=== PATIENT | female | born 1960 | race Caucasian/White ===

== ENCOUNTER 2019-07-25 09:57 | Emergency (ER) | payer OTHER, SELFPAY ==
[2019-07-25 09:59] VITALS: BP 121/81; PULSE 99; RESP 16; TEMP 36.6; BMI 29.2
--- NOTE | 2019-07-25 10:26 | CT_ITS ---
STUDY: CT ABDOMEN AND PELVIS WITH CONTRAST REASON FOR EXAM: Female, 59 years old. LT LEG AND ABD PAIN RADIATION DOSAGE (If Supplied By Facility): CTDIvol = ( 14.06 ) mGy, DLP = ( 721.65 ) mGycm TECHNIQUE: Transaxial images were obtained from the dome of the diaphragm to the symphysis pubis without oral contrast. IV 100mL Isovue-370 was administered. Sagittal and coronal images were reconstructed. Individualized dose optimization techniques were used for this CT. COMPARISON: None. FINDINGS: The visualized lung bases are unremarkable. The visualized portions of the heart are within normal limits. Normal liver. Normal gallbladder and extrahepatic biliary system. Normal spleen. Normal pancreas. Normal bilateral adrenal glands. There is a central dominant renal cyst with simple appearance on the right measuring 3. One centimeters. There is a large inferior pole exophytic cyst of the left kidney measuring 5.7 cm with smaller cortical partially exophytic cysts measuring 1.7 cm and 1.7 cm respectively. There is a large hiatal hernia composed mostly of the fundus of the stomach. Normal small intestine. Normal colon. The appendix is visualized and appears normal. Normal abdominal aorta. Normal inferior vena cava. Normal retroperitoneum. Normal urinary bladder. There is atrophy of the uterus. There is a small umbilical hernia containing fat. Normal osseous structures. CT/Abdomen/Pelvis W IV Cont ONLY IMPRESSION: 1. No evidence of acute intra-abdominal process or focal inflammation. 2. Moderate to large hiatal hernia. 3. Bilateral simple appearing renal cysts with the largest on the left measuring 5.7 cm. Electronically Signed: Ty Meyers DO at 11:57 EDT , Service support ,
--- NOTE | 2019-07-25 10:42 | RAD_ITS ---
STUDY: X-RAY - LEFT KNEE REASON FOR EXAM: Female, 59 years old. Knee pain, off and on, seems to be worse lately -- no injury TECHNIQUE: 4 view(s) of the knee. COMPARISON: None. FINDINGS: Normal visualized distal femur. Normal visualized proximal tibia and fibula. Normal proximal tibiofibular articulation. Normal medial femorotibial compartment. Normal lateral femorotibial compartment. Degenerative spurring and narrowing at the patellofemoral articulation. Small suprapatellar effusion. The soft tissue structures are unremarkable. RAD/Knee 4 or More Views IMPRESSION: Degenerative changes of the knee. Electronically Signed: Luis Bell DO at 12:02 EDT Tel [phone], Service support ,
--- NOTE | 2019-07-25 10:43 | ED.DCSUM_ITS ---
History of Present Illness <Estephania Meneses - Last Filed: 07/25/19 11:01> Informant: Patient Onset: Days - 3 days Context: Gradual Onset Timing: Continuous Quality: Cramping left lower quadrant pain and sharp left knee pain Location: Abdomen and left knee Current Severity: Moderate Maximum Severity: Moderate Worsened by: Movement Relieved by: Nothing Associated Symptoms: Constipation Narrative: 59-year-old female presents with abdominal pain and left knee pain. She has had several days of intermittent left lower quadrant cramping pain. Nothing really makes it better or worse. She has been constipated. No symptoms of bleeding. No fevers. No vomiting. No urinary symptoms. She also has left knee pain which is chronic she knows that she needs left knee replacement but has been working last couple days and thinks that she overdid it and is having worsening pain. No trauma. No numbness or tingling. No weakness. She is ambulatory. Prior similar symptoms: Yes Recent Illness/Hospitalization: No <ChaseloraPhilipp - Last Filed: 07/25/19 12:21> Chief Complaint: Lower Extremity Injury Past Medical History <Estephania Meneses - Last Filed: 07/25/19 11:01> Prior records reviewed: Yes Past Medical History: None Surgical History: no surgical history Lives: With Family Smoking Status: Never smoker Alcohol: Occasional Drugs: None <ChaseloraPhilipp - Last Filed: 07/25/19 12:21> - Allergies and Home Meds Allergies/Adverse Reactions: Allergies Sulfa (Sulfonamide Antibiotics) Allergy (Verified 07/25/19 10:03) Rash EXLAX Allergy (Uncoded 07/25/19 10:03) Rash Review of Systems All systems negative except as indicated General: Denies: Chills, Fever, Sweats Eyes: Denies: Visual changes - bilaterally, Diplopia ENT: Denies: Rhinorrhea, Sore throat Cardiovascular: Denies: Chest pain, Palpitations Respiratory: Denies: Dyspnea, Cough, Dyspnea on exertion Gastrointestinal: Reports: Abdominal pain, Constipation. Denies: Nausea, Vomiting, Diarrhea, Melena, Hematochezia Genitourinary: Denies: Dysuria, Hematuria, Frequency Musculoskeletal: Reports: Swelling, Extremity Pain. Denies: Myalgias, Arthralgias, Neck pain, Back pain Skin: Denies: Rash, Wounds Neurological: Denies: Headache, Weakness, Numbness <Philipp Crowder - Last Filed: 07/25/19 12:21> Physical Exam Vital Signs/Narrative: Vital Signs Temp Pulse Resp BP 07/25/19 09:59 97.8 F 99 16 121/81 H <Estephania Meneses - Last Filed: 07/25/19 11:01> Vital Signs/Narrative: Vital Signs Temp Pulse Resp BP 07/25/19 09:59 97.8 F 99 16 121/81 H Inital Vital Signs reviewed: Yes General: Well nourished, Well developed, No Acute Distress Head: Normocephalic, Atraumatic Eyes: Perrl, EOMI ENT: Moist mucous membranes, No rhinorrhea Neck: Supple, Nontender Cardiovascular: Regular rate, Regular rhythm, No murmurs Respiratory: No distress, CTA bilaterally, Chest nontender Abdomen: Soft, Nondistended, Normal bowel sounds, Tender - Left lower quadrant pain on palpation. No guarding or rebound Back: Nontender, Normal Inspection Extremities: Tenderness - Patient has mild swelling left knee mostly anteriorly. There is bony tenderness diffusely. She has painful active range of motion but no weakness. There is no asymmetrical leg swelling no signs of compartment syndrome distal pulses are normal and distal sensation is normal Skin: Normal color, No rash, No Trauma Neurological: Alert, Oriented x3, Cranial nerves II-XII grossly intact, Normal Strength, Normal Sensation, Normal Gait Psychological: Normal affect, Normal Mood <Philipp Crowder - Last Filed: 07/25/19 12:21> Diagnostic/Tx/Re-eval - Medical Decision Making Patient seen with Philipp agree with history and physical as above, Patient has multiple complaints one is left lower abdominal pain for weeks, 1 is left knee pain for years maybe her whole life He has been been seen by orthopedics she has been told she may require knee replacement surgery, The abdominal pain is not related to the knee pain, the abdomen is soft there is a vague pain to the left lower abdomen no rebound guarding or megaly left lower extremity there is a vague left knee pain she is able to flex and extend there is a slight deformity to her knee that she states is chronic related to issues with her patella and her lead knee is kind of loose and grinding her distal tib- fib foot and ankle exam unremarkable Given all the above 2 separate issues will work-up her abdominal pain x-ray of the knee and see the chart for full details <Estephania Meneses - Last Filed: 07/25/19 11:01> - Medical Decision Making Patient's laboratory work-up is unremarkable. CT abdomen and pelvis unremarkable. X-ray shows chronic findings. Repeat exam abdomen is soft and nontender patient tolerating by mouth will be discharged home <Philipp Crowder - Last Filed: 07/25/19 12:21> ED Disposition <Estephania Meneses - Last Filed: 07/25/19 11:01> <Philipp Crowder - Last Filed: 07/25/19 12:21> - Plan for ED Patient: Disposition: Home or Assisted Living Diagnosis: Abdominal pain, Constipation, Arthritis of knee, degenerative Instructions: ED Constipation, ED Osteoarthritis Prescriptions: Magnesium Citrate [Citrate Of Magnesia] 300 ml PO X1 #1 bottle Prescription Printed Referrals: Luciano Peoples MD [Primary Care Provider] -
[2019-07-25] MEDS: 0.9% Normal Saline 1,000 ML 1000 ML IV (10:53)
[2019-07-25 11:06] LABS: Absolute Lymphocyte Count 1.34 X10^3/uL (0.83-4.51); Absolute Neutrophil Count 3.7 X10^3/uL (2.0-7.7); Basophil# 0.03 X10^3/uL; Basophil% 0.5 % (0-1); Eosinophil# 0.11 X10^3/uL; Hematocrit 37.4 % (37-47); Hemoglobin 12.1 g/dL (12.0-15.0); Lymphocyte # 1.34 X10^3/ul (4.0); Mean Corp Hgb Conc 32.4 g/dL (32-36); Mean Corpuscular Hgb 30.3 pg (27.0-32.0); Mean Corpuscular Volume 93.5 fL (81-99); Mean Platelet Vol. 10.9 fl (6.2-12.0); Monocyte# 0.39 X10^3/uL; NRBC Flagged by Analyzer 0 % (0-5); Neutrophil # 3.68 X10^3/uL (2.7-7.7); Platelet Count 328 K/mm3 (150-450); RBC Distribution Width CV 14.1 % (11.6-14.6); White Blood Count 5.6 K/mm3 (4.4-11.0)
[2019-07-25 11:18] LABS: Anion Gap 5 (5-15); BUN 14 mg/dL (7-18); BUN/Creat Ratio 21.5 RATIO (10-20); Calcium,Total 8.6 mg/dL (8.5-10.1); Chloride 107 mmol/L (98-107); Creatinine, Serum 0.65 mg/dL (0.55-1.02); EST Glomerular Filtration Rate 99 mL/min (>60); Est Glom Filt Rate - Afr Amer 120 mL/min (>60); Estimated Creatinine Clearance 81.47 ml/min; Glucose 92 mg/dL (74-106); Potassium 3.7 mmol/L (3.5-5.1); Sodium Level 141 mmol/L (136-145)
[2019-07-25 12:50] VITALS: BP 136/72; PULSE 64; RESP 17
== END 2019-07-25 12:53 | disposition home or self-care (01) ==
PROVIDERS: Emergency Provider Physician Assistant Medical; PCP Internal Medicine
DX: K59.00 Constipation, unspecified (principal); R10.32 Left lower quadrant pain; M17.12 Unilateral primary osteoarthritis, left knee
CPT/HCPCS: 73564; 74177; 80048; 85025; 96360; 96361; 99283; J7030; Q9967; A4216

== ENCOUNTER 2020-02-25 16:20 | Inpatient (IN) | payer OTHER, SELFPAY ==
[2020-02-25 16:21] VITALS: BP 108/55; PULSE 120; RESP 18; TEMP 37.3; O2SAT 99
--- NOTE | 2020-02-25 16:44 | ED.DCSUM_ITS ---
History of Present Illness Chief Complaint: Allergic Reaction Informant: Patient Narrative: Patient is a 59-year-old female who presents to the emergency department for diffuse rash. Her initial symptoms started yesterday. It started on her abdomen but quickly spread to her entire body. She thinks that it is itchy at times but generally it does not. She feels like it is painful. She was prescribed prednisone by her PCP yesterday and she has taken 4 pills so far. This has not helped at all. She has been shaking chills as well. Of note she did complete a 7 day antibiotic course with Keflex yesterday for a suspected urinary tract infection although her doctor's office called her back and said she did not have a UTI. She was initially placed on this after she said she had some suprapubic discomfort at the beginning of this month. This has since gone away. She did develop fevers today up to 102. She states that this morning she woke up on the kitchen floor as well. She thinks she passed out. She is never done this before. She is not for sure how long she was out for. She had a Covid test performed yesterday and just found out today that it was negative. She denies any headache. She denies any sore throat. No issues with swallowing. Denies any chest pain or shortness of breath. She is not a cough. No abdominal pain or nausea/vomiting. No change in bowel habits. No urinary symptoms now. She does have a history of a rash after taking MiraLAX which she thinks she was having allergic reaction to. She denies any new exposures now. Past Medical History - Allergies and Home Meds Allergies/Adverse Reactions: Allergies Sulfa (Sulfonamide Antibiotics) Allergy (Severe, Verified 02/25/20 23:52) Rash cephalexin [From Keflex] Adverse Reaction (Verified 02/25/20 23:52) Rash EXLAX Allergy (Uncoded 02/25/20 16:24) Rash Prior records reviewed: Yes Past Medical History: - - Anxiety, headaches Surgical History: no surgical history Smoking Status: Never smoker - Family History Maternal Family History: Reports: Diabetes Paternal Family History: Reports: - - His father his healthy and living. His father is 80 years old. Review of Systems All systems negative except as indicated General: Reports: Chills, Fever. Denies: Sweats Eyes: Denies: Visual changes - bilaterally, Diplopia ENT: Denies: Rhinorrhea, Sore throat Cardiovascular: Denies: Chest pain, Palpitations Respiratory: Denies: Dyspnea, Cough, Dyspnea on exertion Gastrointestinal: Denies: Abdominal pain, Nausea, Vomiting, Diarrhea, Melena, Hematochezia Genitourinary: Denies: Dysuria, Hematuria, Frequency Musculoskeletal: Denies: Back pain, Extremity Pain Skin: Reports: Rash. Denies: Wounds Neurological: Denies: Headache, Weakness, Numbness Allergy: Denies: Swelling of the mouth, Swelling of the tongue Physical Exam Vital Signs/Narrative: Vital Signs Temp Pulse Resp BP Pulse Ox 02/25/20 16:21 99.2 F H 120 H 18 108/55 L 99 Inital Vital Signs reviewed: Yes General: Well nourished, Well developed, No Acute Distress Head: Normocephalic, Atraumatic Eyes: Perrl, EOMI ENT: Moist mucous membranes, No rhinorrhea, - - The roof of the mouth does appear mildly erythematous but no lesions appreciated. No swelling. Neck: Supple, Nontender Cardiovascular: Regular rhythm, No murmurs, Tachycardia Respiratory: No distress, CTA bilaterally, Chest nontender Abdomen: Soft, Nontender, Nondistended, Normal bowel sounds Back: Nontender, Normal Inspection Extremities: Nontender, No edema Skin: Normal color, Rash - Raised erythematous rash that does alex. This exte nds all the way from the mid shins bilaterally up to her face. The palms of her hands and soles of her feet are spared. Neurological: Alert, Oriented x3, Cranial nerves II-XII grossly intact, Normal Strength, Normal Sensation Psychological: Normal affect, Normal Mood Diagnostic/Tx/Re-eval Chest X-Ray - ED: 1 View - Single view portable x-ray interpreted by myself. Clear lung becker bilaterally without any consolidation. No pleural effusions. Normal cardiac silhouette. Normal-appearing mediastinum. Agree with radiologist interpretation. - EKG Initial EKG Interpretation: - - Rate of 98 bpm and normal sinus rhythm. Normal intervals. Normal axis. No significant ST elevations or depressions. No T wave abnormalities. - Medical Decision Making Patient presents to the emergency department for diffuse rash. She is also had chills and a fever. Otherwise no other symptoms. Upon arrival to the emergency department she is tachycardic. She has a mildly elevated temperature but not technically a fever. She does have a very concerning rash that is very diffuse except the palms of her hands and soles of her feet are spared. No new exposures. Will check lab work including blood cultures, urinalysis and chest x -ray. Patient's coronavirus test did come back negative. Chest x-ray not show any signs of acute infiltrates. Her urine does still have evidence of infection although she is not having any symptoms at this timeframe. Given the fact she still having fevers and chills we will cover her with antibiotics with ciprofloxacin as she is likely allergic to cephalosporins with the rash. She did not get much of a response from the Solu-Medrol or Benadryl. Her rash could potentially just be a drug rash with the fever but with the potential UTI will bring her into the hospital for further evaluation to make sure that this resolves. She otherwise has been stable throughout ED stay. She understands and is agreeable this plan. ED Disposition - Plan for ED Patient: Disposition: Acute Care Hospital [facility] Diagnosis: Diffuse papular rash, Fever, UTI (urinary tract infection), Drug reaction, Lactic acidosis
[2020-02-25 17:08] VITALS: BP 112/58; PULSE 106; RESP 15; O2SAT 98
--- NOTE | 2020-02-25 17:14 | EKG12_ITS ---
Test Reason : Blood Pressure : / mmHG Vent. Rate : 098 BPM Atrial Rate : 098 BPM P-R Int : 138 ms QRS Dur : 090 ms QT Int : 370 ms P-R-T Axes : 044 002 032 degrees QTc Int : 472 ms Normal sinus rhythm Normal ECG Confirmed by BILL STUBBS, AKIKO ([id number]), city editor LEORA FARIAS ([id number]) on 03/01/2020 6:42:52 AM Referred By: GRADY Confirmed By:AKIKO KHAN MD
--- NOTE | 2020-02-25 17:15 | RAD_ITS ---
STUDY: X-RAY CHEST REASON FOR EXAM: Female, 59 years old. Rash TECHNIQUE: Frontal view of the chest COMPARISON: None. FINDINGS: The lungs are clear. There are no pleural effusions. There is no pneumothorax. The heart is normal in size. The visualized osseous structures are within normal limits. RAD/Chest 1 View (Portable) IMPRESSION: No acute thoracic pathology. Electronically Signed: Dimitri Stevens MD at 17:28 EST Tel , Service support ,
--- NOTE | 2020-02-25 17:18 | NURSING ---
NO OLD EKGS
[2020-02-25 17:32] LABS: Absolute Lymphocyte Count 0.36 X10^3/uL (0.83-4.51); Basophil# 0.01 X10^3/uL; Basophil% 0.1 % (0-1); Eosinophil# 0.09 X10^3/uL; Eosinophils% 0.9 % (0-5); Hematocrit 37.9 % (37-47); Hemoglobin 12.5 g/dL (12.0-15.0); Lymphocyte # 0.36 X10^3/ul (4.0); Lymphocyte % 3.7 % (19-41); Mean Corpuscular Hgb 29.3 pg (27.0-32.0); Mean Platelet Vol. 10.9 fl (6.2-12.0); NRBC Flagged by Analyzer 0 % (0-5); Neutrophil # 9.02 X10^3/uL (2.7-7.7); Neutrophil % 93.7 % (47-70); POSITIVE DIFFERENTIAL YES; Platelet Count 288 K/mm3 (150-450); RBC Distribution Width CV 14.2 % (11.6-14.6); Red Blood Count 4.26 M/mm3 (4.2-5.4); White Blood Count 9.6 K/mm3 (4.4-11.0)
[2020-02-25 17:37] LABS: Differential Indicated SCAN CRITERIA MET
[2020-02-25] MEDS: DiphenhydrAMINE 50 MG/ML Syringe 25 MG IV (17:47)
[2020-02-25] MEDS: MethylPREDNISolone 125 MG/2 ML Vial IV (17:47)
[2020-02-25 17:48] VITALS: TEMP 36.7
[2020-02-25 17:59] LABS: ALB/GLOB Ratio 0.9 RATIO (0.9-2.4); AST(SGOT) 15 U/L (15-37); Alanine Aminotransfer ALT/SGPT 24 U/L (13-56); Albumin, Serum 3.1 g/dL (3.2-5.0); Alkaline Phosphatase 87 U/L (45-117); Anion Gap 9 (5-15); BUN 12 mg/dL (7-18); BUN/Creat Ratio 12.2 RATIO (10-20); Chloride 101 mmol/L (98-107); Creatinine, Serum 0.98 mg/dL (0.55-1.02); EST Glomerular Filtration Rate 61 mL/min (>60); Est Glom Filt Rate - Afr Amer 74 mL/min (>60); Estimated Creatinine Clearance 54.03 ml/min; Globulin 3.5 g/dL (2.2-4.2); Glucose 192 mg/dL (74-106); Potassium 3.7 mmol/L (3.5-5.1); Protein, Total 6.6 g/dL (6.4-8.2); Sodium Level 132 mmol/L (136-145)
[2020-02-25 18:03] LABS: Differential Comment SCANNED
[2020-02-25 18:09] LABS: Red Blood Cells-Urine 0 SEEN /hpf (0-5)
[2020-02-25 18:24] LABS: Lactic Acid 2.7 mmol/L (0.4-1.9)
[2020-02-25 18:36] LABS: Color, Urine Yellow (Yellow); Glucose, Dipstick 100 mg/dl (Normal); Ketone-Dipstick 5 mg/dl (Negative); Leukocyte Esterase-Dipstick 100 /ul (Negative); Nitrite-Dipstick Positive (Negative); Occult Blood-Urine 50 /ul (Negative); Protein-Dipstick 30 mg/dl (Negative); Urine Bilirubin Dipstick Negative (Negative); Urine Clarity Clear (Clear); Urine Urobilinogen Normal (Normal)
[2020-02-25 18:53] VITALS: TEMP 38.1
[2020-02-25 18:58] LABS: Bacteria 1+ /hpf (None Seen); Squamous Epithelial Cells - UA 0-5 SEEN /hpf (5-10); White Blood Cells 0-5 SEEN /hpf (0-5)
[2020-02-25 18:59] LABS: Mucous, Urine RARE /hpf (<or=2+)
[2020-02-25 19:38] VITALS: BP 125/62; PULSE 101; RESP 32; TEMP 37.7; O2SAT 99
[2020-02-25] MEDS: Acetaminophen 325 MG Tablet 650 MG PO (19:44)
[2020-02-25] MEDS: Ciprofloxacin 400 MG/200 ML BAG 200 MG IV (20:26)
[2020-02-25 21:20] LABS: Reflex Lactate? Y
[2020-02-25 21:41] VITALS: BP 122/59; PULSE 105; RESP 24; TEMP 36.9; O2SAT 94
--- NOTE | 2020-02-25 22:12 | HP.PCM_ITS ---
Problem List (1) Adverse drug reaction Status: Acute (2) Fever and chills Status: Acute (3) UTI (urinary tract infection) Status: Acute History of Present Illness Date of Admission: 02/25/20 Chief Complaint: diffuse rash The patient is a 59 year old F with a significant history of depression who presents to the emergency department with diffuse itchy rash that started a day before presentation. Her symptoms started after completing a 7-day course of antibiotics. His symptoms started on the same day that she took her last prescribed dose of Keflex for questionable UTI. Because of this rash, she went to the urgent care a day before her presentation and she was given a steroid taper. Reportedly she was told that the rash may be from Covid. However a Covid test at the urgent care was negative. At the time of present to the emergency department she had taken 4 pills of 10 mg of prednisone. She reports that from February 11 to February 14 2020 she had excruciating lower abdominal pain. On February 16, 2020 she went to the urgent care and was diagnosed with UTI and was started on Keflex. Later she was called and notified that urine culture was negative. However she went ahead to complete the course of keflex antibiotics. On the morning of this presentation she had a home temperature of 102.8 Fahrenheit. Also 2 days ago she had chills. At the emergency department she was given Solu-Medrol; Benadryl and ciprofloxacin. Reportedly her chills improved at the emergency department after treatment. Past Medical History Medical History: Medical History (Last Updated 02/25/20 @ 23:[address] Frank Reeves MD) Denies any previous medical history Allergies Sulfa (Sulfonamide Antibiotics) Allergy (Verified 02/25/20 16:24) Rash EXLAX Allergy (Uncoded 02/25/20 16:24) Rash Home Medications: Ambulatory Orders Medication Instructions Recorded Citalopram [Celexa] 20 mg PO DAILY 07/25/19 Prednisone 10 mg PO X1 02/25/20 Surgical History: no surgical history Smoking Status: Never smoker - *Family History Maternal History Items: Diabetes Paternal History Items: - - His father his healthy and living. His father is 80 years old. Review of Systems Constitutional: Reports: Chills, Fever. Denies: Weight Change HEENT: Denies: Head Aches, Sinus Congestion, Sinus Drainage Cardiovascular: Denies: Chest Pain, Palpitations Respiratory: Denies: Cough, Shortness of breath at rest, Sputum production Gastrointestinal: Denies: Abdominal Pain, Nausea, Vomiting Genitourinary: Denies: Dysuria Musculoskeletal: Denies: Joint Pain, Joint Tenderness Skin: Reports: Pruritis, Rash. Denies: Wounds Neurological: Denies: Numbness, Tingling, Focal weakness Psychiatric: Denies: Anxiety, Depression, Homicidal Ideations, Suicidal Ideations Hematologic/ Lymphatic: Denies: Easy Bruising, Easy Bleeding VTE Information - Inpt Only VTE Present on Admission: No VTE Mechan Device Prophylaxis: None VTE Pharm Prophylaxis ordered?: Yes Patient Problems: Active and Suspected Problems (Last Updated 02/25/20 @ 23:[address] Frank Reeves MD) Adverse drug reaction (Acute) Fever and chills (Acute) UTI (urinary tract infection) (Acute) Diffuse papular rash (Acute) Fever (Acute) UTI (urinary tract infection) (Acute) Drug reaction (Acute) Lactic acidosis (Acute) - Physical Exam Vitals/I&O's: Vital Signs Temp Pulse Resp BP Pulse Ox 98.4 F 105 H 24 H 122/59 H 94 02/25/20 21:41 02/25/20 21:41 02/25/20 21:41 02/25/20 21:41 02/25/20 21:41 Oxygen Delivery Method Room Air Weight: 79.379 kg Body Mass Index (BMI) 30.0 Intake and Output for Last 24 Hours 02/23/20 02/24/20 02/25/20 23:59 23:59 23:59 Intake Total 700 / 700 Balance 700 / 700 General: Alert, Oriented x3, Cooperative HEENT: Atraumatic, PERRLA, EOMI, Normocephalic Neck: Supple, No JVD, Negative Carotid Bruits Lungs: Clear to auscultation, Normal air movement Cardiovascular: Regular rate, No murmurs Abdomen: Bowel Sounds Present, Soft, Non Tender Extremities: No edema, Capillary Refill Less than 3 Seconds Skin: - - Diffuse wheals Musculoskeletal: No Tenderness to Palpation of Joints or Extremities Neurological: Cranial nerves II-XII grossly intact Psych/Mental Status: Normal Affect, Appropriate Laboratory Results 02/25/20 17:00: WBC 9.6, RBC 4.26, Hgb 12.5, Hct 37.9, MCV 89.0, MCH 29.3, MCHC 33.0, RDW Std Deviation 46.0 H, RDW Coeff of Blaise 14.2, Plt Count 288, MPV 10.9, Immature Gran % (Auto) 0.600, Neut % (Auto) 93.7 H, Lymph % (Auto) 3.7 L, [place] % (Auto) 1.0, Eos % (Auto) 0.9, Baso % (Auto) 0.1, Absolute Neuts (auto) 9.0 H, Absolute Lymphs (auto) 0.36 L, Nucleated RBC % 0, Differential Comment SCANNED 02/25/20 17:00: Sodium 132 L, Potassium 3.7, Chloride 101, Carbon Dioxide 22.0, Anion Gap 9, BUN 12, Creatinine 0.98, Estim Creat Clear Calc 54.03, Est GFR (MDRD) Af Amer 74, Est GFR (MDRD) Non-Af 61, BUN/Creatinine Ratio 12.2, Glucose 192 H, Calcium 8.0 L, Total Bilirubin 0.40, AST 15, ALT 24, Alkaline Phosphatase 87, Troponin I < 0.015, Total Protein 6.6, Albumin 3.1 L, Globulin 3.5, Albumin/Globulin Ratio 0.9 02/25/20 17:00: Lactic Acid 2.7 H* 02/25/20 17:15: COVID-19 (PAUL) Not Detected 02/25/20 18:00: Urine Color Yellow, Urine Clarity Clear, Urine pH 6.0, Ur Specific [place] 1.020, Urine Protein 30 H, Urine Glucose (UA) 100 H, Urine Ketones 5 H, Urine Occult Blood 50 H, Urine Nitrite Positive H, Urine Bilirubin Negative, Urine Urobilinogen Normal, Ur Leukocyte Esterase 100 H, Urine RBC 0 SEEN, Urine WBC 0-5 SEEN, Ur Squamous Epith Cells 0-5 SEEN, Urine Bacteria 1+, Urine Mucus RARE 02/25/20 21:40: Lactic Acid Pending Assessment/Plan All Active Problems (Last Updated 02/25/20 @ 23:[address] Frank Reeves MD) Adverse drug reaction (Acute) Fever and chills (Acute) UTI (urinary tract infection) (Acute) Diffuse papular rash (Acute) Fever (Acute) UTI (urinary tract infection) (Acute) Drug reaction (Acute) Lactic acidosis (Acute) The patient is a 59 year old F with a significant history of depression who presents emergency department with diffuse itchy rash after completing a course of antibiotics and with chills and fever. Adverse drug reaction. Suspects that her diffuse rash is from Keflex. Add Keflex to patient's allergy list. Received Solu-Medrol 125 mg at emergency department. Continue patient on prednisone 40 mg daily. As needed Benadryl for itching. Acute UTI Patient without urinary symptoms and completed a course of Keflex. However urinalysis is abnormal. And patient has chills and fever. Chills and fever could be from adverse drug reaction. Received ciprofloxacin at the emergency department and will continue. Blood culture and urine culture was obtained at the emergency department; follow. DVT prophylaxis Subcutaneous Lovenox ordered. OBSV E&M: [id number] Initial observation care L2
[2020-02-25 22:38] LABS: Lactic Acid 2.1 mmol/L (0.4-1.9)
[2020-02-26] VITALS (11 sets, daily range): BP systolic 110–132; BP diastolic 61–74; PULSE 87–124; RESP 16–18; TEMP 37–39.3; O2SAT 95–100; BMI 30.4
--- NOTE | 2020-02-26 02:04 | PCS.PANDOC ---
PANDEMIC DOCUMENTATION INITIATED: Date: 02/25 Time: 5474
[2020-02-26] MEDS: DiphenhydrAMINE 25 MG Capsule PO ×2 (02:17→10:39)
[2020-02-26] MEDS: Acetaminophen 325 MG Tablet 650 MG PO ×3 (02:17→17:43)
[2020-02-26 05:45] LABS: Absolute Lymphocyte Count 0.37 X10^3/uL (0.83-4.51); Absolute Neutrophil Count 12.1 X10^3/uL (2.0-7.7); Basophil# 0.01 X10^3/uL; Basophil% 0.1 % (0-1); Eosinophil# 0.05 X10^3/uL; Eosinophils% 0.4 % (0-5); Hematocrit 33.7 % (37-47); Hemoglobin 11.1 g/dL (12.0-15.0); Lymphocyte # 0.37 X10^3/ul (4.0); Lymphocyte % 2.9 % (19-41); Mean Corp Hgb Conc 32.9 g/dL (32-36); Mean Corpuscular Hgb 29.3 pg (27.0-32.0); Mean Corpuscular Volume 88.9 fL (81-99); Mean Platelet Vol. 11.3 fl (6.2-12.0); Monocyte# 0.11 X10^3/uL; Monocyte% 0.9 % (0-10); NRBC Flagged by Analyzer 0 % (0-5); Neutrophil # 12.09 X10^3/uL (2.7-7.7); Neutrophil % 94.8 % (47-70); POSITIVE DIFFERENTIAL YES; Platelet Count 253 K/mm3 (150-450); RBC Distribution Width CV 14.1 % (11.6-14.6); RBC Distribution Width SD 46.5 fl (35.1-43.9); Red Blood Count 3.79 M/mm3 (4.2-5.4); White Blood Count 12.7 K/mm3 (4.4-11.0)
[2020-02-26 05:51] LABS: Differential Indicated SCAN CRITERIA MET
[2020-02-26 06:09] LABS: Anion Gap 8 (5-15); BUN 13 mg/dL (7-18); BUN/Creat Ratio 13.6 RATIO (10-20); Calcium,Total 7.9 mg/dL (8.5-10.1); Chloride 103 mmol/L (98-107); Creatinine, Serum 0.96 mg/dL (0.55-1.02); EST Glomerular Filtration Rate 63 mL/min (>60); Est Glom Filt Rate - Afr Amer 77 mL/min (>60); Estimated Creatinine Clearance 55.16 ml/min; Glucose 227 mg/dL (74-106); Potassium 3.4 mmol/L (3.5-5.1); Sodium Level 134 mmol/L (136-145)
[2020-02-26 06:19] LABS: Differential Comment SCANNED; Pathologist Review May foll
[2020-02-26] MEDS: Ciprofloxacin 400 MG/200 ML BAG 200 MG IV ×2 (07:26→21:47)
[2020-02-26] MEDS: 0.9% Saline Lock 10 ML Syringe IV (07:26)
[2020-02-26] MEDS: predniSONE 20 MG Tablet 40 MG PO (07:31)
--- NOTE | 2020-02-26 09:03 | PCM.PN.HOSP ---
Patient Problems: Active and Suspected Problems (Last Updated 02/25/20 @ 23:[address] Frank Reeves MD) Adverse drug reaction (Acute) Fever and chills (Acute) UTI (urinary tract infection) (Acute) Diffuse papular rash (Acute) Fever (Acute) UTI (urinary tract infection) (Acute) Drug reaction (Acute) Lactic acidosis (Acute) Reason for Visit: Adverse drug reaction Subjective: The patient is a 59 year old F who presents emergency department with diffuse itchy rash (after completing a course of antibiotics) with associated chills and fever. Objective: GENERAL: cooperative HEENT: Atraumatic; EYES; Anicteric, Normal Conjunctiva NECK; supple, normal thyroid, RESPIRATORY: Diminished to auscultation CARDIOVASCULAR: Regular S1 S2, GI: soft, normoactive bowel sounds, : No Renal angle tenderness; EXTREMITIES: No edema, no clubbing, MUSCULOSKELETAL: no muscle waisting NEURO: Awake; no lateralizing signs. SKIN: Sensitive maculopapular rash from face neck trunk back and extremities PSYCH; appears anxious Vitals/I&O's: Vital Signs Temp Pulse Resp BP Pulse Ox 99.8 F H 100 18 121/63 H 99 02/26/20 07:23 02/26/20 07:23 02/26/20 07:23 02/26/20 07:23 02/26/20 07:23 Oxygen Delivery Method Room Air Weight: 80.422 kg Body Mass Index (BMI) 30.4 Intake and Output for Last 24 Hours 02/24/20 02/25/20 02/26/20 23:59 23:59 23:59 Intake Total 700 / 700 200 / 200 Balance 700 / 700 200 / 200 Laboratory Results 02/25/20 17:00: WBC 9.6, RBC 4.26, Hgb 12.5, Hct 37.9, MCV 89.0, MCH 29.3, MCHC 33.0, RDW Std Deviation 46.0 H, RDW Coeff of Blaise 14.2, Plt Count 288, MPV 10.9, Immature Gran % (Auto) 0.600, Neut % (Auto) 93.7 H, Lymph % (Auto) 3.7 L, [place] % (Auto) 1.0, Eos % (Auto) 0.9, Baso % (Auto) 0.1, Absolute Neuts (auto) 9.0 H, Absolute Lymphs (auto) 0.36 L, Nucleated RBC % 0, Differential Comment SCANNED 02/25/20 17:00: Sodium 132 L, Potassium 3.7, Chloride 101, Carbon Dioxide 22.0, Anion Gap 9, BUN 12, Creatinine 0.98, Estim Creat Clear Calc 54.03, Est GFR (MDRD) Af Amer 74, Est GFR (MDRD) Non-Af 61, BUN/Creatinine Ratio 12.2, Glucose 192 H, Calcium 8.0 L, Total Bilirubin 0.40, AST 15, ALT 24, Alkaline Phosphatase 87, Troponin I < 0.015, Total Protein 6.6, Albumin 3.1 L, Globulin 3.5, Albumin/Globulin Ratio 0.9 02/25/20 17:00: Lactic Acid 2.7 H* 02/25/20 17:15: COVID-19 (PAUL) Not Detected 02/25/20 18:00: Urine Color Yellow, Urine Clarity Clear, Urine pH 6.0, Ur Specific [place] 1.020, Urine Protein 30 H, Urine Glucose (UA) 100 H, Urine Ketones 5 H, Urine Occult Blood 50 H, Urine Nitrite Positive H, Urine Bilirubin Negative, Urine Urobilinogen Normal, Ur Leukocyte Esterase 100 H, Urine RBC 0 SEEN, Urine WBC 0-5 SEEN, Ur Squamous Epith Cells 0-5 SEEN, Urine Bacteria 1+, Urine Mucus RARE 02/25/20 21:40: Lactic Acid 2.1 H* 02/26/20 05:05: WBC 12.7 H, RBC 3.79 L, Hgb 11.1 L, Hct 33.7 L, MCV 88.9, MCH 29.3, MCHC 32.9, RDW Std Deviation 46.5 H, RDW Coeff of Blaise 14.1, Plt Count 253, MPV 11.3, Immature Gran % (Auto) 0.900, Neut % (Auto) 94.8 H, Lymph % (Auto) 2.9 L, [place] % (Auto) 0.9, Eos % (Auto) 0.4, Baso % (Auto) 0.1, Absolute Neuts (auto) 12.1 H, Absolute Lymphs (auto) 0.37 L, Nucleated RBC % 0, Differential Comment SCANNED, Diff Path Review June02/26/20 05:05: Sodium 134 L, Potassium 3.4 L, Chloride 103, Carbon Dioxide 23.0, Anion Gap 8, BUN 13, Creatinine 0.96, Estim Creat Clear Calc 55.16, Est GFR (MDRD) Af Amer 77, Est GFR (MDRD) Non-Af 63, BUN/Creatinine Ratio 13.6, Glucose 227 H, Calcium 7.9 L Current Medications Acetaminophen (Acetaminophen 325 Mg Tablet) 650 mg PO Q6H PRN PRN PRN Reason: Pain Score 1-10/Temp > 100.7 F Last Admin: 02/26/20 02:17 Dose: 650 mg Documented by: Citalopram Hydrobromide (Citalopram 20 Mg Tablet) 20 mg PO DAILY [facility] Diphenhydramine HCl (Diphenhydramine 25 Mg Capsule) 25 mg PO Q8H PRN PRN PRN Reason: ITCHING Last Admin: 02/26/20 02:17 Dose: 25 mg Documented by: Enoxaparin Sodium (Enoxaparin 40 Mg/0.4 Ml Syringe) 40 mg SC DAILY [facility] Ciprofloxacin (Cipro) 400 mg in 200 mls @ 200 mls/hr IV Q12 [facility] Last Infusion: 02/26/20 08:26 Dose: Infused Documented by: Sodium Chloride () 250 mls @ 15 mls/hr IV .[id number] PRN PRN Reason: Saline Flush Sodium Chloride () 250 mls @ 15 mls/hr IV .[id number] PRN PRN Reason: Additional IVPB Infusion Melatonin (Melatonin 3 Mg Tablet) 3 mg PO QHS PRN PRN PRN Reason: INSOMNIA Ondansetron HCl (Ondansetron 4 Mg/2 Ml Vial) 4 mg IV Q8H PRN PRN PRN Reason: NAUSEA/VOMITING Prednisone (Prednisone 20 Mg Tablet) 40 mg PO DAILY@0800 [facility] Last Admin: 02/26/20 07:31 Dose: 40 mg Documented by: Senna/Docusate Sodium (Senna/Docusate Sodium 1 Tablet) 2 tablet PO BID PRN PRN PRN Reason: Constipation Sodium Chloride (0.9% Saline Lock 10 Ml Syringe) 10 - 40 ml IV UD PRN PRN Reason: SALINE FLUSH Last Admin: 02/26/20 07:26 Dose: 10 ml Documented by: STROKE Vital Signs/Narrative: Vital Signs Temp Pulse Resp BP Pulse Ox 02/26/20 07:23 99.8 F H 100 18 121/63 H 99 Medical Necessity - Tobacco Use Smoking Status: Never smoker Assessment/Plan All Active Problems (Last Updated 02/25/20 @ 23:[address] Frank Reeves MD) Adverse drug reaction (Acute) Fever and chills (Acute) UTI (urinary tract infection) (Acute) Diffuse papular rash (Acute) Fever (Acute) UTI (urinary tract infection) (Acute) Drug reaction (Acute) Lactic acidosis (Acute) The patient is a 59 year old F who presents emergency department with diffuse itchy rash (after completing a course of antibiotics) with associated chills and fever. 1. Adverse drug reaction ?This was thought to be secondary to cephalexin. Patient did receive Solu-Medrol in the ER admitted to regular nursing floor placed on prednisone, Benadryl and famotidine 2. Acute cystitis ?Patient had apparently complicated course of Keflex however urinalysis obtained in the ED was consistent with presence of infection subsequently started on Cipro 3. Resting with BMI of 30.4 ?Weight loss advised 4. DVT prophylaxis ?Lovenox Inpatient E&M: 83364 Subs Hosp L2
[2020-02-26] MEDS: Citalopram 20 MG Tablet PO (10:39)
[2020-02-26] MEDS: Enoxaparin 40 MG/0.4 ML Syringe SC (10:39)
--- NOTE | 2020-02-26 14:07 | CM.UR ---
RN CM INSTANTIZER OPERATOR CM to room to meet with patient and her for initial transition planning/care coordination assessment. RN LORETTA introduced self and role at [facility].? Pt voices understanding and consents to assessment at this time.? Pt resting in bed in no distress at this time.? Pt is A/O at this time and answers all questions appropriately.?? Care providers, pharmacy, and demographics verified/updated at this time. Presentation: painful rash Admission dx: UTI and dermatitis PCP: [facility] Specialists: none Preferred Pharmacy: [facility] Insurance: [employer] Prescription Benefit:? Yes [employer], declines problems affording copays Living Arrangements: Single story home. 2 steps with railing to enter home. ADLs: independent Living Will/HPOA:? None. Declines additional information. States she is knowledgeable about them, previously worked for [employer]. LNOK: [place] Transportation: drives self and , if she is not able/allowed. DME: grab bar in shower HHC: none SNF: none Goal: home PLAN: ?Home, no needs anticipated. Patient denies any needs at this time. Instructed case management will remain available should any needs arise. Verb understanding. Nellie Birmingham RN, CCM.
[2020-02-26] MEDS: Famotidine 20 MG Tablet 40 MG PO (14:26)
[2020-02-26] MEDS: Famotidine 20 MG Tablet PO (21:47)
[2020-02-27] MEDS: Acetaminophen 325 MG Tablet 650 MG PO (00:32)
[2020-02-27 03:00] VITALS: TEMP 38.3
[2020-02-27 04:30] VITALS: BP 106/53; PULSE 88; RESP 16; TEMP 39.3; O2SAT 96
--- NOTE | 2020-02-27 05:49 | PCM.PN.BLA ---
Progress Note With persistence of fever blood Tylenol alone is unable to manage ibuprofen as needed also ordered. Will repeat blood culture. Blood culture is pending. Initially her symptoms was attributed to adverse drug reaction and UTI. But with assistance fever will broaden antibiotics by adding doxycycline for probable infectious rash. Will check a CMP to rule out dress syndrome. Of note eosinophils are not elevated. STROKE Vital Signs/Narrative: Vital Signs Temp Pulse Resp BP Pulse Ox 02/27/20 04:30 102.7 F H 88 16 106/53 L 96 02/27/20 03:00 101.0 F H
[2020-02-27] MEDS: Ibuprofen 400 MG Tablet PO (05:57)
[2020-02-27 06:11] LABS: Hematocrit 39.3 % (37-47); Hemoglobin 12.7 g/dL (12.0-15.0); Mean Corp Hgb Conc 32.3 g/dL (32-36); Mean Corpuscular Hgb 28.5 pg (27.0-32.0); Mean Corpuscular Volume 88.3 fL (81-99); Mean Platelet Vol. 11.5 fl (6.2-12.0); Platelet Count 256 K/mm3 (150-450); RBC Distribution Width CV 14.4 % (11.6-14.6); RBC Distribution Width SD 46.8 fl (35.1-43.9); Red Blood Count 4.45 M/mm3 (4.2-5.4); White Blood Count 11.4 K/mm3 (4.4-11.0)
[2020-02-27 06:26] LABS: ALB/GLOB Ratio 0.8 RATIO (0.9-2.4); AST(SGOT) 14 U/L (15-37); Alanine Aminotransfer ALT/SGPT 22 U/L (13-56); Albumin, Serum 2.6 g/dL (3.2-5.0); Alkaline Phosphatase 68 U/L (45-117); Anion Gap 6 (5-15); BUN 16 mg/dL (7-18); BUN/Creat Ratio 14.8 RATIO (10-20); Calcium,Total 7.9 mg/dL (8.5-10.1); Chloride 100 mmol/L (98-107); Creatinine, Serum 1.08 mg/dL (0.55-1.02); EST Glomerular Filtration Rate 55 mL/min (>60); Est Glom Filt Rate - Afr Amer 67 mL/min (>60); Estimated Creatinine Clearance 49.03 ml/min; Globulin 3.2 g/dL (2.2-4.2); Glucose 101 mg/dL (74-106); Potassium 3.7 mmol/L (3.5-5.1); Protein, Total 5.8 g/dL (6.4-8.2); Sodium Level 132 mmol/L (136-145)
--- NOTE | 2020-02-27 07:52 | PCM.PN.HOSP ---
Patient Problems: Active and Suspected Problems (Last Updated 02/25/20 @ 23:[address] Frank Reeves MD) Adverse drug reaction (Acute) Fever and chills (Acute) UTI (urinary tract infection) (Acute) Diffuse papular rash (Acute) Fever (Acute) UTI (urinary tract infection) (Acute) Drug reaction (Acute) Lactic acidosis (Acute) Reason for Visit: Extensive maculopapular rash Subjective: The patient is a 59 year old F who presents emergency department with diffuse itchy rash (after completing a course of antibiotics) with associated chills and fever. 02/27/2020; patient did receive Motrin for persistent fever. Her rash is more confluent compared to the previous day. Her urine and blood cultures have so far remained negative to date. Patient was on Cipro discontinued during the night started on doxycycline Objective: GENERAL: cooperative HEENT: Atraumatic; EYES; Anicteric, Normal Conjunctiva NECK; supple, normal thyroid, RESPIRATORY: Diminished to auscultation CARDIOVASCULAR: Regular S1 S2, GI: soft, normoactive bowel sounds, : No Renal angle tenderness; EXTREMITIES: No edema, no clubbing, MUSCULOSKELETAL: no muscle waisting NEURO: Awake; no lateralizing signs. SKIN: Sensitive maculopapular rash from face neck trunk back and extremities PSYCH; appears anxious Vitals/I&O's: Vital Signs Temp Pulse Resp BP Pulse Ox 102.7 F H 88 16 106/53 L 96 02/27/20 04:30 02/27/20 04:30 02/27/20 04:30 02/27/20 04:30 02/27/20 04:30 Oxygen Delivery Method Room Air Weight: 80.422 kg Body Mass Index (BMI) 30.4 Intake and Output for Last 24 Hours 02/25/20 02/26/20 02/27/20 23:59 23:59 23:59 Intake Total 700 / 700 760 / 1360 1000 / 1000 Balance 700 / 700 760 / 1360 1000 / 1000 Laboratory Results 02/27/20 05:15: WBC 11.4 H, RBC 4.45, Hgb 12.7, Hct 39.3, MCV 88.3, MCH 28.5, MCHC 32.3, RDW Std Deviation 46.8 H, RDW Coeff of Blaise 14.4, Plt Count 256, MPV 11.5 02/27/20 05:15: Sodium 132 L, Potassium 3.7, Chloride 100, Carbon Dioxide 26.0, Anion Gap 6, BUN 16, Creatinine 1.08 H, Estim Creat Clear Calc 49.03, Est GFR (MDRD) Af Amer 67, Est GFR (MDRD) Non-Af 55 L, BUN/Creatinine Ratio 14.8, Glucose 101, Calcium 7.9 L, Total Bilirubin 0.40, AST 14 L, ALT 22, Alkaline Phosphatase 68, Total Protein 5.8 L, Albumin 2.6 L, Globulin 3.2, Albumin/Globulin Ratio 0.8 L Current Medications Acetaminophen (Acetaminophen 325 Mg Tablet) 650 mg PO Q6H PRN PRN PRN Reason: Pain Score 1-10/Temp > 100.7 F Last Admin: 02/27/20 00:32 Dose: 650 mg Documented by: Citalopram Hydrobromide (Citalopram 20 Mg Tablet) 20 mg PO DAILY [facility] Last Admin: 02/26/20 10:39 Dose: 20 mg Documented by: Diphenhydramine HCl (Diphenhydramine 25 Mg Capsule) 25 mg PO Q8H PRN PRN PRN Reason: ITCHING Last Admin: 02/26/20 10:39 Dose: 25 mg Documented by: Enoxaparin Sodium (Enoxaparin 40 Mg/0.4 Ml Syringe) 40 mg SC DAILY [facility] Last Admin: 02/26/20 10:39 Dose: 40 mg Documented by: Famotidine (Famotidine 20 Mg Tablet) 20 mg PO BID [facility] Last Admin: 02/26/20 21:47 Dose: 20 mg Documented by: Ciprofloxacin (Cipro) 400 mg in 200 mls @ 200 mls/hr IV Q12 [facility] Last Infusion: 02/26/20 22:54 Dose: Infused Documented by: Sodium Chloride () 250 mls @ 15 mls/hr IV .[id number] PRN PRN Reason: Saline Flush Sodium Chloride () 250 mls @ 15 mls/hr IV .[id number] PRN PRN Reason: Additional IVPB Infusion Doxycycline Hyclate 100 mg/ (Dextrose) 260 mls @ 250 mls/hr IV Q12 [facility] Last Admin: 02/27/20 06:38 Dose: 250 mls/hr Documented by: Ibuprofen (Ibuprofen 400 Mg Tablet) 400 mg PO Q6H PRN PRN PRN Reason: Fever with temperature more than 100.4 Fahrenheit Last Admin: 02/27/20 05:57 Dose: 400 mg Documented by: Melatonin (Melatonin 3 Mg Tablet) 3 mg PO QHS PRN PRN PRN Reason: INSOMNIA Ondansetron HCl (Ondansetron 4 Mg/2 Ml Vial) 4 mg IV Q8H PRN PRN PRN Reason: NAUSEA/VOMITING Potassium Chloride (Potassium Chloride 20 Meq Tablet) [facility] Last Admin: 02/26/20 17:43 Dose: 20 meq Documented by: Prednisone (Prednisone 20 Mg Tablet) 40 mg PO DAILY@0800 [facility] Last Admin: 02/26/20 07:31 Dose: 40 mg Documented by: Senna/Docusate Sodium (Senna/Docusate Sodium 1 Tablet) 2 tablet PO BID PRN PRN PRN Reason: Constipation Sodium Chloride (0.9% Saline Lock 10 Ml Syringe) 10 - 40 ml IV UD PRN PRN Reason: SALINE FLUSH Last Admin: 02/26/20 07:26 Dose: 10 ml Documented by: STROKE Vital Signs/Narrative: Vital Signs Temp Pulse Resp BP Pulse Ox 02/27/20 04:30 102.7 F H 88 16 106/53 L 96 Medical Necessity - Tobacco Use Smoking Status: Never smoker Assessment/Plan All Active Problems (Last Updated 02/25/20 @ 23:[address] Frank Reeves MD) Adverse drug reaction (Acute) Fever and chills (Acute) UTI (urinary tract infection) (Acute) Diffuse papular rash (Acute) Fever (Acute) UTI (urinary tract infection) (Acute) Drug reaction (Acute) Lactic acidosis (Acute) The patient is a 59 year old F who presents emergency department with diffuse itchy rash (after completing a course of antibiotics) with associated chills and fever. 1. Extensive maculopapular rash ?? adverse drug reaction ?This was thought to be secondary to cephalexin. Patient did receive Solu-Medrol in the ER admitted to regular nursing floor placed on prednisone, Benadryl and famotidine -02/27/2020; patient did receive Motrin for persistent fever. Her rash is more confluent compared to the previous day. 2. Acute cystitis ?Patient had apparently complicated course of Keflex however urinalysis obtained in the ED was consistent with presence of infection subsequently started on Cipro -02/27/2020 Patient blood cultures obtained on admission are so far positive for gram-positive cocci in clusters. Patient started on doxycycline (ciprofloxacin discontinued) during the evening. Will await final identification and sensitivities prior to adjusting antibiotic therapy. Consult was also placed to ID due to the positive blood cultures 3. Resting with BMI of 30.4 ?Weight loss advised 4. DVT prophylaxis ?Lovenox Inpatient E&M: 70860 Subs Hosp L2
[2020-02-27] MEDS: predniSONE 20 MG Tablet 40 MG PO ×2 (09:05→19:51)
[2020-02-27] MEDS: Enoxaparin 40 MG/0.4 ML Syringe SC (09:06)
[2020-02-27] MEDS: Citalopram 20 MG Tablet PO (09:06)
[2020-02-27] MEDS: Famotidine 20 MG Tablet PO ×2 (09:06→21:57)
[2020-02-27] MEDS: Ciprofloxacin 400 MG/200 ML BAG 200 MG IV (09:11)
[2020-02-27 09:14] VITALS: BP 90/54; PULSE 93; RESP 16; TEMP 36.3; O2SAT 98
[2020-02-27 10:38] VITALS: O2SAT 97
[2020-02-27 14:30] VITALS: BP 101/54; PULSE 87; RESP 16; TEMP 37.1; O2SAT 96
[2020-02-27 14:40] LABS: Erythrocyte Sedimentation Rate 11 mm/hr (0-30)
--- NOTE | 2020-02-27 20:11 | DS.PCM_ITS ---
Discharge Date and Diagnosis - Problem List Patient Problems: Active and Suspected Problems (Last Updated 02/25/20 @ 23:[address] Frank Reeves MD) Adverse drug reaction (Acute) Fever and chills (Acute) UTI (urinary tract infection) (Acute) Diffuse papular rash (Acute) Fever (Acute) UTI (urinary tract infection) (Acute) Drug reaction (Acute) Lactic acidosis (Acute) Date of Admission: 02/25/20 Date of Discharge: 02/27/20 - Primary Discharge Diagnosis Acute Problems: Active Problems (Last Updated 02/25/20 @ 23:[address] Frank Reeves MD) 1. Extensive diffuse erythematous/purpuric rash, suspected drug reaction, mendoza picious for Kaiser-Miguelito syndrome 2. UTI ruled out 3. Depression Hospital Course and Treatment Imaging Results: Diagnostic Data Chest X-Ray 02/25/20 17:15 IMPRESSION: No acute thoracic pathology. Electronically Signed: Dimitri Stevens MD at 17:28 EST Tel , Service support , Operations: None Procedures: None Summary of Care Provided: The patient is a 59 year old F admitted 02/25/2020 due to diffuse rash. 1. Extensive diffuse erythematous/purpuric rash, suspected drug reaction, suspicious for Kaiser-Miguelito syndrome-patient's rash began days after completing course of Keflex. Her rash was preceded by flulike symptoms including fever, chills. Her rash has extensively worsened and is painful. Due to concern for Dimitri Miguelito syndrome, patient was transferred to [facility] burn unit for further treatment and evaluation. She was treated with 1 mg/kg prednisone, 80 mg/day along with as needed Benadryl, famotidine. 2. UTI ruled out-urine culture grew 1-10,000 mixed gram-positive and gram- negative organisms. Patient did have 1 out of 4 positive blood culture which is still preliminary however this is suspected secondary to contamination as there is no identifiable organisms. Patient was kept on doxycycline pending final culture read out. 3. Depression- on celexa. Patient seen and examined prior to discharge. Physical assessment as noted below. Patient is stable for discharge with follow up recommendations as noted above. This patient was seen by MUKUND Youssef under the supervision of Dr. Alarcon. Patient Problems: Active and Suspected Problems (Last Updated 02/25/20 @ 23:[address] Frank Reeves MD) Adverse drug reaction (Acute) Fever and chills (Acute) UTI (urinary tract infection) (Acute) Diffuse papular rash (Acute) Fever (Acute) UTI (urinary tract infection) (Acute) Drug reaction (Acute) Lactic acidosis (Acute) - Physical Exam Vitals/I&O's: Vital Signs Temp Pulse Resp BP Pulse Ox 98.7 F 87 16 101/54 L 96 02/27/20 14:30 02/27/20 14:30 02/27/20 14:30 02/27/20 14:30 02/27/20 14:30 Oxygen Delivery Method Room Air Weight: 177 lb 4.8 oz Body Mass Index (BMI) 30.4 Intake and Output for Last 24 Hours 02/25/20 02/26/20 02/27/20 23:59 23:59 23:59 Intake Total 700 / 700 760 / 1360 1810 / 1810 Balance 700 / 700 760 / 1360 1810 / 1810 Microbiology Past 72 Hours 02/25/20 18:15 Blood Culture (Wb) - Anticubital Left Bacteria Detection (PCR) - Final 02/25/20 18:15 Blood Culture (Wb) - Anticubital Left Blood Culture - Preliminary 02/25/20 18:00 Urine, Clean Catch Urine Culture - Final Mixed Gram Pos & Gram Neg Org Laboratory Results 02/25/20 17:15: COVID-19 (PAUL) Not Detected 02/27/20 05:15: WBC 11.4 H, RBC 4.45, Hgb 12.7, Hct 39.3, MCV 88.3, MCH 28.5, MCHC 32.3, RDW Std Deviation 46.8 H, RDW Coeff of Blaise 14.4, Plt Count 256, MPV 11.5 02/27/20 05:15: Sodium 132 L, Potassium 3.7, Chloride 100, Carbon Dioxide 26.0, Anion Gap 6, BUN 16, Creatinine 1.08 H, Estim Creat Clear Calc 49.03, Est GFR (MDRD) Af Amer 67, Est GFR (MDRD) Non-Af 55 L, BUN/Creatinine Ratio 14.8, Glucose 101, Calcium 7.9 L, Total Bilirubin 0.40, AST 14 L, ALT 22, Alkaline Phosphatase 68, Total Protein 5.8 L, Albumin 2.6 L, Globulin 3.2, Albumin/Globulin Ratio 0.8 L 02/27/20 05:15: ESR 11 02/27/20 05:15: C-React Prot Ext Range 185.00 H Current Medications Acetaminophen (Acetaminophen 325 Mg Tablet) 650 mg PO Q6H PRN PRN PRN Reason: Pain Score 1-10/Temp > 100.7 F Last Admin: 02/27/20 00:32 Dose: 650 mg Documented by: Citalopram Hydrobromide (Citalopram 20 Mg Tablet) 20 mg PO DAILY [facility] Last Admin: 02/27/20 09:06 Dose: 20 mg Documented by: Diphenhydramine HCl (Diphenhydramine 25 Mg Capsule) 25 mg PO Q8H PRN PRN PRN Reason: ITCHING Last Admin: 02/26/20 10:39 Dose: 25 mg Documented by: Enoxaparin Sodium (Enoxaparin 40 Mg/0.4 Ml Syringe) 40 mg SC DAILY [facility] Last Admin: 02/27/20 09:06 Dose: 40 mg Documented by: Famotidine (Famotidine 20 Mg Tablet) 20 mg PO BID [facility] Last Admin: 02/27/20 09:06 Dose: 20 mg Documented by: Ciprofloxacin (Cipro) 400 mg in 200 mls @ 200 mls/hr IV Q12 [facility] Last Infusion: 02/27/20 10:14 Dose: Infused Documented by: Sodium Chloride () 250 mls @ 15 mls/hr IV .[id number] PRN PRN Reason: Saline Flush Sodium Chloride () 250 mls @ 15 mls/hr IV .[id number] PRN PRN Reason: Additional IVPB Infusion Doxycycline Hyclate 100 mg/ (Dextrose) 260 mls @ 250 mls/hr IV Q12 [facility] Last Infusion: 02/27/20 08:15 Dose: Infused Documented by: Ibuprofen (Ibuprofen 400 Mg Tablet) 400 mg PO Q6H PRN PRN PRN Reason: Fever with temperature more than 100.4 Fahrenheit Last Admin: 02/27/20 05:57 Dose: 400 mg Documented by: Melatonin (Melatonin 3 Mg Tablet) 3 mg PO QHS PRN PRN PRN Reason: INSOMNIA Ondansetron HCl (Ondansetron 4 Mg/2 Ml Vial) 4 mg IV Q8H PRN PRN PRN Reason: NAUSEA/VOMITING Prednisone (Prednisone 20 Mg Tablet) 80 mg PO DAILY@0800 [facility] Senna/Docusate Sodium (Senna/Docusate Sodium 1 Tablet) 2 tablet PO BID PRN PRN PRN Reason: Constipation Sodium Chloride (0.9% Saline Lock 10 Ml Syringe) 10 - 40 ml IV UD PRN PRN Reason: SALINE FLUSH Last Admin: 02/26/20 07:26 Dose: 10 ml Documented by: Home Medications: Medications to take at Discharge Citalopram [Celexa] 20 mg PO DAILY 07/25/19 Prednisone 10 mg PO X1 02/25/20 Primary Care Physician: Luciano Peoples MD [Primary Care Provider] - Disposition: Acute care Hospital Minutes spent on discharge:: 35 Patient Condition:: Fair Medical Necessity - Tobacco Use Smoking Status: Never smoker Meaningful Use Info Meaningful Use Diagnoses (Choose all that apply): None applicable
[2020-02-27 20:30] VITALS: BP 118/69; PULSE 87; RESP 16; TEMP 37.1; O2SAT 98
--- NOTE | 2020-02-28 | LES_PTH ---
PATIENT: DAVEY CARRASQUILLO LOC: MS3 U#:[id number] AGE/SX: 59/F [place] [facility] [place] [place]02/27/[address]: Dr. Ray Anthony MD : 1960 BED: 1 DIS: 03/01/2020 SPEC #: [id number] RECD: 02/29/20 11:13 STATUS: LIOR JOYCE #: [id number] SONU: 02/28/20 00:[address]: Ray Anthony DEPT: SURGICAL PATHOLOGY RECD BY: Calixto Gutierrez ENTERED: 02/29/20 11:23 SP TYPE: Lesion OTHR DR: MD Dr. Sammy Pack MD Dr. 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 Mild basal spongiosis and rare necrotic keratinocytes are noted. Negative for malignancy. See comment. CHUCKIE:lida 03/01/2020 COMMENT Epidermal necrosis is not seen. Clinical correlation and appropriate follow up are necessary. Special stain for fungi is negative for organisms; matched control is appropriate. Case has been reviewed in consultation with Dr. Avila who concurs with the above diagnosis. IDC:AM MICROSCOPIC DESCRIPTION Slides are reviewed. GROSS DESCRIPTION Received in fixative is one container labeled with the patient's name and designated left calf punch biopsy. The specimen consists of a punch biopsy of berkowitz-white skin measuring 0.5 cm in diameter and 0.1 cm in length. The specimen is totally submitted in one cassette. It will be bisected at the time of embedding. / SJ:lida 02/29/20 TC:3 CPT: 64263, 61087
[2020-02-28 02:30] VITALS: BP 110/59; PULSE 85; RESP 16; TEMP 37.1; O2SAT 98
--- NOTE | 2020-02-28 02:51 | NURSING ---
Late entry: CANDACE Patino called to update that pt will be re-evaluated in morning. Pt has been accepted and will be transferred to [facility] burn unit tomorrow. Pt made aware of plan.
[2020-02-28 06:56] LABS: Hematocrit 32.4 % (37-47); Hemoglobin 10.9 g/dL (12.0-15.0); Mean Corp Hgb Conc 33.6 g/dL (32-36); Mean Corpuscular Hgb 29.1 pg (27.0-32.0); Mean Corpuscular Volume 86.4 fL (81-99); Mean Platelet Vol. 11.5 fl (6.2-12.0); Platelet Count 221 K/mm3 (150-450); RBC Distribution Width CV 14.1 % (11.6-14.6); RBC Distribution Width SD 44.8 fl (35.1-43.9); Red Blood Count 3.75 M/mm3 (4.2-5.4); White Blood Count 7.2 K/mm3 (4.4-11.0)
[2020-02-28 07:18] LABS: Anion Gap 6 (5-15); BUN 12 mg/dL (7-18); BUN/Creat Ratio 19.9 RATIO (10-20); Calcium,Total 8.2 mg/dL (8.5-10.1); Chloride 103 mmol/L (98-107); EST Glomerular Filtration Rate 108 mL/min (>60); Est Glom Filt Rate - Afr Amer 131 mL/min (>60); Estimated Creatinine Clearance 88.25 ml/min; Glucose 122 mg/dL (74-106); Sodium Level 135 mmol/L (136-145)
[2020-02-28] MEDS: predniSONE 20 MG Tablet 80 MG PO (08:24)
[2020-02-28 08:27] VITALS: BP 122/61; PULSE 90; RESP 16; TEMP 36.5; O2SAT 100
[2020-02-28] MEDS: DiphenhydrAMINE 25 MG Capsule PO ×2 (08:37→19:48)
[2020-02-28] MEDS: Enoxaparin 40 MG/0.4 ML Syringe SC (10:08)
[2020-02-28] MEDS: Citalopram 20 MG Tablet PO (10:09)
[2020-02-28] MEDS: Famotidine 20 MG Tablet PO ×2 (10:09→21:54)
--- NOTE | 2020-02-28 12:32 | PCM.PN.HOSP ---
Patient Problems: Active and Suspected Problems (Last Updated 02/25/20 @ 23:[address] Frank Reeves MD) Adverse drug reaction (Acute) Fever and chills (Acute) UTI (urinary tract infection) (Acute) Diffuse papular rash (Acute) Fever (Acute) UTI (urinary tract infection) (Acute) Drug reaction (Acute) Lactic acidosis (Acute) Subjective: Feeling much better today, no issues overnight. She did have some extension of her rash into the palms of her hands bilaterally. Vitals/I&O's: Vital Signs Temp Pulse Resp BP Pulse Ox 97.7 F L 90 16 122/61 H 100 02/28/20 08:27 02/28/20 08:27 02/28/20 08:27 02/28/20 08:27 02/28/20 08:27 Oxygen Delivery Method Room Air Weight: 177 lb 4.8 oz Body Mass Index (BMI) 30.4 Intake and Output for Last 24 Hours 02/26/20 02/27/20 02/28/20 23:59 23:59 23:59 Intake Total 760 / 1360 1810 / 2110 600 / 600 Balance 760 / 1360 1810 / 2110 600 / 600 General: Alert, Oriented x3, Cooperative, No apparent distress HEENT: Atraumatic, PERRLA, EOMI, Normocephalic Oral: Moist Mucosa, No Gingival or Mucosal Lesions/ Ulcerations Neck: Supple, No JVD Lungs: Normal air movement, No rhonchi, No wheeze, No rales Cardiovascular: Regular rate, Regular Rhythm, Normal S1, Normal S2, No murmurs Abdomen: Soft, Non Tender, Non-Distended, No Hepato-splenomegaly Extremities: No edema, Capillary Refill Less than 3 Seconds Skin: - - Diffuse rash covering almost 100% of her body surface. It is nonraised minimally tender. Does not alex. No mucosal involvement Neurological: Neuro grossly intact, Sensory exam intact to light touch and pain Psych/Mental Status: Normal Affect, Appropriate Microbiology Past 72 Hours 02/25/20 17:00 Blood Culture (Wb) - Anticubital Left Blood Culture - Preliminary No growth in 48 hours. 02/25/20 18:15 Blood Culture (Wb) - Anticubital Left Bacteria Detection (PCR) - Final 02/25/20 18:15 Blood Culture (Wb) - Anticubital Left Blood Culture - Preliminary Presumptive Micrococcus spp. 02/25/20 18:00 Urine, Clean Catch Urine Culture - Final Mixed Gram Pos & Gram Neg Org Laboratory Results 02/27/20 05:15: ESR 11 02/27/20 05:15: C-React Prot Ext Range 185.00 H 02/28/20 06:19: WBC 7.2, RBC 3.75 L, Hgb 10.9 L, Hct 32.4 L, MCV 86.4, MCH 29.1, MCHC 33.6, RDW Std Deviation 44.8 H, RDW Coeff of Blaise 14.1, Plt Count 221, MPV 11.5 02/28/20 06:19: Sodium 135 L, Potassium 4.0, Chloride 103, Carbon Dioxide 26.0, Anion Gap 6, BUN 12, Creatinine 0.60, Estim Creat Clear Calc 88.25, Est GFR (MDRD) Af Amer 131, Est GFR (MDRD) Non-Af 108, BUN/Creatinine Ratio 19.9, Glucose 122 H, Calcium 8.2 L Current Medications Acetaminophen (Acetaminophen 325 Mg Tablet) 650 mg PO Q6H PRN PRN PRN Reason: Pain Score 1-10/Temp > 100.7 F Last Admin: 02/27/20 00:32 Dose: 650 mg Documented by: Citalopram Hydrobromide (Citalopram 20 Mg Tablet) 20 mg PO DAILY [facility] Last Admin: 02/28/20 10:09 Dose: 20 mg Documented by: Diphenhydramine HCl (Diphenhydramine 25 Mg Capsule) 25 mg PO Q8H PRN PRN PRN Reason: ITCHING Last Admin: 02/28/20 08:37 Dose: 25 mg Documented by: Enoxaparin Sodium (Enoxaparin 40 Mg/0.4 Ml Syringe) 40 mg SC DAILY [facility] Last Admin: 02/28/20 10:08 Dose: 40 mg Documented by: Famotidine (Famotidine 20 Mg Tablet) 20 mg PO BID [facility] Last Admin: 02/28/20 10:09 Dose: 20 mg Documented by: Sodium Chloride () 250 mls @ 15 mls/hr IV .[id number] PRN PRN Reason: Saline Flush Sodium Chloride () 250 mls @ 15 mls/hr IV .[id number] PRN PRN Reason: Additional IVPB Infusion Ibuprofen (Ibuprofen 400 Mg Tablet) 400 mg PO Q6H PRN PRN PRN Reason: Fever with temperature more than 100.4 Fahrenheit Last Admin: 02/27/20 05:57 Dose: 400 mg Documented by: Melatonin (Melatonin 3 Mg Tablet) 3 mg PO QHS PRN PRN PRN Reason: INSOMNIA Ondansetron HCl (Ondansetron 4 Mg/2 Ml Vial) 4 mg IV Q8H PRN PRN PRN Reason: NAUSEA/VOMITING Prednisone (Prednisone 20 Mg Tablet) 80 mg PO DAILY@0800 [facility] Last Admin: 02/28/20 08:24 Dose: 80 mg Documented by: Senna/Docusate Sodium (Senna/Docusate Sodium 1 Tablet) 2 tablet PO BID PRN PRN PRN Reason: Constipation Sodium Chloride (0.9% Saline Lock 10 Ml Syringe) 10 - 40 ml IV UD PRN PRN Reason: SALINE FLUSH Last Admin: 02/26/20 07:26 Dose: 10 ml Documented by: Medical Necessity - Tobacco Use Smoking Status: Never smoker Assessment/Plan All Active Problems (Last Updated 02/25/20 @ 23:[address] Frank Reeves MD) Adverse drug reaction (Acute) Fever and chills (Acute) UTI (urinary tract infection) (Acute) Diffuse papular rash (Acute) Fever (Acute) UTI (urinary tract infection) (Acute) Drug reaction (Acute) Lactic acidosis (Acute) 1. Extensive rash possibly an adverse drug reaction -She was on to have a UTI prior to admission for about 7 days, and she finished her antibiotic on . She presented on Friday diffuse rash as well as fevers and chills -He was in chills have resolved and her outpatient Covid test was negative -Rash is nonpapular, there is no open areas or skin tears -Increase her steroids from 40 mg p.o. daily to 80 mg p.o. daily -We will continue to monitor her for another 48 hours, I discussed the case with outpatient sld inclusion teacher who would be willing to see her on the day of discharge -Will obtain a punch biopsy of one of her lesions and sent to pathology 2. Acute cystitis -UA was consistent with UTI however urine culture was unremarkable -She did have a micrococcus grow in 1 out of 4 culture bottles on admission. She remains afebrile -Repeat blood cultures are pending -Appreciate ID assistance 3. Depression/anxiety -Stable -Continue Celexa DVT: Lovenox Inpatient E&M: 55445 Subs Hosp L2
--- NOTE | 2020-02-28 13:13 | NURSING ---
ro aware that patient will not be transferred out at this time.
[2020-02-28 15:05] VITALS: BP 124/82; PULSE 90; RESP 18; TEMP 36.8; O2SAT 99
--- NOTE | 2020-02-28 16:13 | PCM.HP.ID ---
Problem List (1) Adverse drug reaction Status: Acute Reason for Consult: rash Consulted by: Dr. Anthony History of Present Illness: The patient is a 59 year old F with h/o rash with sulfa, presented with several days of rash, fever, not feeling well. Completed keflex 02/23 for uti. Worsening dark red/purple rash over body, including palms. Now with some painful sores in mouth. No blistering. No pain in genitals. Rash is slightly better today. Full ROS performed and neg except as noted above. - Medical History Surgical History: reviewed Allergies/Adverse Reactions: Allergies Sulfa (Sulfonamide Antibiotics) Allergy (Severe, Verified 02/25/20 23:52) Rash cephalexin [From Keflex] Adverse Reaction (Verified 02/25/20 23:52) Rash EXLAX Allergy (Uncoded 02/25/20 16:24) Rash Home Medications: Ambulatory Orders Medication Instructions Recorded Citalopram [Celexa] 20 mg PO DAILY 07/25/19 Prednisone 10 mg PO X1 02/25/20 - Social History Tobacco Use: non-smoker Vital Signs Temp Pulse Resp BP Pulse Ox 97.7 F L 90 16 122/61 H 100 02/28/20 08:27 02/28/20 08:27 02/28/20 08:27 02/28/20 08:27 02/28/20 08:27 Oxygen Delivery Method Room Air Weight: 80.422 kg Body Mass Index (BMI) 30.4 Microbiology Past 72 Hours 02/25/20 18:15 Bacteria Detection (PCR) - Final Blood Culture (Wb) - Anticubital Left Blood Culture - Preliminary Presumptive Micrococcus spp. 02/25/20 17:00 Blood Culture - Preliminary Blood Culture (Wb) - Anticubital Left No growth in 48 hours. 02/25/20 18:00 Urine Culture - Final Urine, Clean Catch Mixed Gram Pos & Gram Neg Org Laboratory Tests Past 24 Hrs 02/28/20 02/28/20 06:19 06:19 WBC 7.2 RBC 3.75 L Hgb 10.9 L Hct 32.4 L MCV 86.4 MCH 29.1 MCHC 33.6 RDW Std Deviation 44.8 H RDW Coeff of Blaise 14.1 Plt Count 221 MPV 11.5 Sodium 135 L Potassium 4.0 Chloride 103 Carbon Dioxide 26.0 Anion Gap 6 BUN 12 Creatinine 0.60 Estim Creat Clear Calc 88.25 Est GFR (MDRD) Af Amer 131 Est GFR (MDRD) Non-Af 108 BUN/Creatinine Ratio 19.9 Glucose 122 H Calcium 8.2 L - Other Studies Radiology: [] reviewed Other Studies: [] Route of nutrition/ use of supplements: [] Nutritional Intake: [] IV Site: [] Lei Catheter: [] - Physical Exam General: Alert, Oriented x3, Cooperative, No apparent distress HEENT: Atraumatic, PERRLA, EOMI, - - minimal oral lesion Neck: Supple, No Nodes Lungs: Clear to auscultation, Normal air movement Cardiovascular: Regular rate, Regular Rhythm Abdomen: Soft, Non Tender, Non-Distended Extremities: No edema Skin: - - diffuse rash including on palms IV Site: Peripheral, without redness Musculoskeletal: No Tenderness to Palpation of Joints or Extremities Neurological: Cranial nerves II-XII grossly intact - Assessment/Plan Antibiotics: [] Assessment/Plan: [] Active and Suspected Problems (Last Updated 02/25/20 @ 23:[address] Frank Reeves MD) Adverse drug reaction (Acute) Fever and chills (Acute) UTI (urinary tract infection) (Acute) Diffuse papular rash (Acute) Fever (Acute) UTI (urinary tract infection) (Acute) Drug reaction (Acute) Lactic acidosis (Acute) fever, rash, oral involvement - sx improving. Concern for [facility] related to keflex. Derm to see. Abx have been stopped. On prednisone. No skin breakdown. Will follow as needed, thank you
[2020-02-28 18:28] VITALS: BP 115/60; PULSE 85; RESP 16; TEMP 36.7; O2SAT 100
[2020-02-29] VITALS: BP 100/55; PULSE 63; RESP 16; TEMP 36.8; O2SAT 96
[2020-02-29 06:00] VITALS: BP 91/49; PULSE 67; RESP 16; TEMP 36.8; O2SAT 96
[2020-02-29 07:11] LABS: Absolute Lymphocyte Count 1.25 X10^3/uL (0.83-4.51); Basophil# 0.05 X10^3/uL; Basophil% 0.7 % (0-1); Eosinophil# 0.66 X10^3/uL; Eosinophils% 9.8 % (0-5); Hematocrit 31.9 % (37-47); Hemoglobin 10.8 g/dL (12.0-15.0); Lymphocyte # 1.25 X10^3/ul (4.0); Lymphocyte % 18.5 % (19-41); Mean Corp Hgb Conc 33.9 g/dL (32-36); Mean Corpuscular Hgb 29.2 pg (27.0-32.0); Mean Corpuscular Volume 86.2 fL (81-99); Mean Platelet Vol. 11.7 fl (6.2-12.0); Monocyte# 0.46 X10^3/uL; Monocyte% 6.8 % (0-10); NRBC Flagged by Analyzer 0 % (0-5); Neutrophil # 4.03 X10^3/uL (2.7-7.7); Neutrophil % 59.8 % (47-70); POSITIVE MORPHOLOGY YES; Platelet Count 236 K/mm3 (150-450); RBC Distribution Width CV 14.4 % (11.6-14.6); RBC Distribution Width SD 45.4 fl (35.1-43.9); White Blood Count 6.8 K/mm3 (4.4-11.0)
[2020-02-29 07:18] LABS: Anion Gap 7 (5-15); BUN 14 mg/dL (7-18); BUN/Creat Ratio 22.4 RATIO (10-20); Chloride 106 mmol/L (98-107); Creatinine, Serum 0.62 mg/dL (0.55-1.02); EST Glomerular Filtration Rate 104 mL/min (>60); Est Glom Filt Rate - Afr Amer 126 mL/min (>60); Estimated Creatinine Clearance 85.41 ml/min; Glucose 84 mg/dL (74-106); Potassium 3.6 mmol/L (3.5-5.1); Sodium Level 139 mmol/L (136-145)
[2020-02-29 07:52] LABS: Differential Indicated SCAN CRITERIA MET
[2020-02-29 08:04] LABS: Differential Comment SCANNED
[2020-02-29] MEDS: predniSONE 20 MG Tablet 80 MG PO (09:34)
[2020-02-29] MEDS: Citalopram 20 MG Tablet PO (09:35)
[2020-02-29] MEDS: Enoxaparin 40 MG/0.4 ML Syringe SC (09:35)
[2020-02-29] MEDS: Famotidine 20 MG Tablet PO ×2 (09:35→21:06)
[2020-02-29 09:44] VITALS: BP 119/72; PULSE 70; RESP 16; TEMP 36.6; O2SAT 100
--- NOTE | 2020-02-29 12:00 | PCM.PN.HOSP ---
Patient Problems: Active and Suspected Problems (Last Updated 02/25/20 @ 23:[address] Frank Reeves MD) Adverse drug reaction (Acute) Fever and chills (Acute) UTI (urinary tract infection) (Acute) Diffuse papular rash (Acute) Fever (Acute) UTI (urinary tract infection) (Acute) Drug reaction (Acute) Lactic acidosis (Acute) Subjective: Doing well, rash appears older better today Vitals/I&O's: Vital Signs Temp Pulse Resp BP Pulse Ox 97.8 F 70 16 119/72 100 02/29/20 09:44 02/29/20 09:44 02/29/20 09:44 02/29/20 09:44 02/29/20 09:44 Oxygen Delivery Method Room Air Weight: 177 lb 4.8 oz Body Mass Index (BMI) 30.4 Intake and Output for Last 24 Hours 02/27/20 02/28/20 02/29/20 23:59 23:59 23:59 Intake Total 1809 1950 / 2450 500 / 500 Balance 1809 / 2450 500 / 500 General: Alert, Oriented x3, Cooperative, No apparent distress HEENT: Atraumatic, PERRLA, EOMI, Normocephalic Oral: Moist Mucosa, No Gingival or Mucosal Lesions/ Ulcerations Neck: Supple, No JVD Lungs: Normal air movement, No rhonchi, No wheeze, No rales Cardiovascular: Regular rate, Regular Rhythm, Normal S1, Normal S2, No murmurs Abdomen: Soft, Non Tender, Non-Distended, No Hepato-splenomegaly Extremities: No edema, Capillary Refill Less than 3 Seconds Skin: - - Diffuse rash covering almost 100% of her body surface. It is nonraised minimally tender. Does not alex. No mucosal involvement. Site of punch biopsy is clean dry and intact Neurological: Neuro grossly intact, Sensory exam intact to light touch and pain Psych/Mental Status: Normal Affect, Appropriate Microbiology Past 72 Hours 02/27/20 06:30 Blood Culture (Wb) - Left Hand Blood Culture - Preliminary No growth in 48 hours. 02/27/20 06:00 Blood Culture (Wb) - Right Hand Blood Culture - Preliminary No growth in 48 hours. 02/25/20 18:15 Blood Culture (Wb) - Anticubital Left Bacteria Detection (PCR) - Final 02/25/20 18:15 Blood Culture (Wb) - Anticubital Left Blood Culture - Preliminary Presumptive Micrococcus spp. 02/25/20 17:00 Blood Culture (Wb) - Anticubital Left Blood Culture - Preliminary No growth in 48 hours. 02/25/20 18:00 Urine, Clean Catch Urine Culture - Final Mixed Gram Pos & Gram Neg Org Laboratory Results 02/29/20 06:25: Sodium 139, Potassium 3.6, Chloride 106, Carbon Dioxide 26.0, Anion Gap 7, BUN 14, Creatinine 0.62, Estim Creat Clear Calc 85.41, Est GFR (MDRD) Af Amer 126, Est GFR (MDRD) Non-Af 104, BUN/Creatinine Ratio 22.4 H, Glucose 84, Calcium 8.0 L 02/29/20 06:25: WBC 6.8, RBC 3.70 L, Hgb 10.8 L, Hct 31.9 L, MCV 86.2, MCH 29.2, MCHC 33.9, RDW Std Deviation 45.4 H, RDW Coeff of Blaise 14.4, Plt Count 236, MPV 11.7, Immature Gran % (Auto) 4.400 H, Neut % (Auto) 59.8, Lymph % (Auto) 18.5 L, Murray % (Auto) 6.8, Eos % (Auto) 9.8 H, Baso % (Auto) 0.7, Absolute Neuts (auto) 4.0, Absolute Lymphs (auto) 1.25, Nucleated RBC % 0, Differential Comment SCANNED Current Medications Acetaminophen (Acetaminophen 325 Mg Tablet) 650 mg PO Q6H PRN PRN PRN Reason: Pain Score 1-10/Temp > 100.7 F Last Admin: 02/27/20 00:32 Dose: 650 mg Documented by: Citalopram Hydrobromide (Citalopram 20 Mg Tablet) 20 mg PO DAILY [facility] Last Admin: 02/29/20 09:35 Dose: 20 mg Documented by: Diphenhydramine HCl (Diphenhydramine 25 Mg Capsule) 25 mg PO Q8H PRN PRN PRN Reason: ITCHING Last Admin: 02/28/20 19:48 Dose: 25 mg Documented by: Enoxaparin Sodium (Enoxaparin 40 Mg/0.4 Ml Syringe) 40 mg SC DAILY [facility] Last Admin: 02/29/20 09:35 Dose: 40 mg Documented by: Famotidine (Famotidine 20 Mg Tablet) 20 mg PO BID [facility] Last Admin: 02/29/20 09:35 Dose: 20 mg Documented by: Sodium Chloride () 250 mls @ 15 mls/hr IV .[id number] PRN PRN Reason: Saline Flush Sodium Chloride () 250 mls @ 15 mls/hr IV .[id number] PRN PRN Reason: Additional IVPB Infusion Ibuprofen (Ibuprofen 400 Mg Tablet) 400 mg PO Q6H PRN PRN PRN Reason: Fever with temperature more than 100.4 Fahrenheit Last Admin: 02/27/20 05:57 Dose: 400 mg Documented by: Melatonin (Melatonin 3 Mg Tablet) 3 mg PO QHS PRN PRN PRN Reason: INSOMNIA Ondansetron HCl (Ondansetron 4 Mg/2 Ml Vial) 4 mg IV Q8H PRN PRN PRN Reason: NAUSEA/VOMITING Prednisone (Prednisone 20 Mg Tablet) 80 mg PO DAILY@0800 [facility] Last Admin: 02/29/20 09:34 Dose: 80 mg Documented by: Senna/Docusate Sodium (Senna/Docusate Sodium 1 Tablet) 2 tablet PO BID PRN PRN PRN Reason: Constipation Sodium Chloride (0.9% Saline Lock 10 Ml Syringe) 10 - 40 ml IV UD PRN PRN Reason: SALINE FLUSH Last Admin: 02/26/20 07:26 Dose: 10 ml Documented by: STROKE Vital Signs/Narrative: Vital Signs Temp Pulse Resp BP Pulse Ox 02/29/20 09:44 97.8 F 70 16 119/72 100 Medical Necessity - Tobacco Use Smoking Status: Never smoker Assessment/Plan All Active Problems (Last Updated 02/25/20 @ 23:[address] Frank Reeves MD) Adverse drug reaction (Acute) Fever and chills (Acute) UTI (urinary tract infection) (Acute) Diffuse papular rash (Acute) Fever (Acute) UTI (urinary tract infection) (Acute) Drug reaction (Acute) Lactic acidosis (Acute) 1. Extensive rash possibly an adverse drug reaction -She was on to have a UTI prior to admission for about 7 days, and she finished her antibiotic on . She presented on Friday diffuse rash as well as fevers and chills -He was in chills have resolved and her outpatient Covid test was negative -Rash is nonpapular, there is no open areas or skin tears -Continue with prednisone 80 mg daily -We will continue to monitor her for another 48 hours, I discussed the case with outpatient machine gunner who would be willing to see her on the day of discharge -Punch biopsy was obtained 02/28/2020 2. Acute cystitis -UA was consistent with UTI however urine culture was unremarkable -She did have a micrococcus grow in 1 out of 4 culture bottles on admission. She remains afebrile -Repeat blood cultures are negative therefore no need for antibiotics at this time 3. Depression/anxiety -Stable -Continue Celexa DVT: Lovenox Inpatient E&M: 21093 Subs Hosp L2
[2020-02-29 15:51] VITALS: BP 111/72; PULSE 73; RESP 16; TEMP 36.6; O2SAT 97
[2020-02-29 20:46] VITALS: BP 118/73; PULSE 75; RESP 16; TEMP 36.4; O2SAT 100
[2020-02-29] MEDS: DiphenhydrAMINE 25 MG Capsule PO (21:06)
[2020-03-01 03:19] VITALS: BP 121/63; PULSE 66; RESP 16; TEMP 36.4; O2SAT 97
--- NOTE | 2020-03-01 09:41 | DCINST_ITS ---
- Discharge Diagnoses Current Active Problems: Current Active and Chronic Problems (Last Updated 02/25/20 @ 23:[address] Frank Reeves MD) Adverse drug reaction (Acute) Fever and chills (Acute) UTI (urinary tract infection) (Acute) Diffuse papular rash (Acute) Fever (Acute) UTI (urinary tract infection) (Acute) Drug reaction (Acute) Lactic acidosis (Acute) You will use the following diet at home:: Regular Your food should be the consistency of: Regular Your liquids should be the consistency of: Regular/Thin Discharge Activity: Return to Normal Activity Call your doctor if you observe: Fever of 101 or Higher, Shortness of breath, Dizziness, Fainting spells, Swelling in the ankles, Chest pain, Increased palpitations (irregular heartbeat) Allergies/Adverse Reactions: Allergies Sulfa (Sulfonamide Antibiotics) Allergy (Severe, Verified 02/25/20 23:52) Rash cephalexin [From Keflex] Adverse Reaction (Verified 02/25/20 23:52) Rash EXLAX Allergy (Uncoded 02/25/20 16:24) Rash Medications to take at Discharge Citalopram [Celexa] 20 mg PO DAILY 07/25/19 predniSONE tablet 80 mg PO DAILY@0800 #120 tab 03/01/20 The following prescriptions were given: predniSONE tablet 80 mg PO DAILY@0800 #120 tab Transmission Status: Received by [facility] Primary Care Physician: Luciano Peoples MD [Primary Care Provider] - Please follow up with your Primary Care Physician in: 3-5 days Test Results: Test results from this visit will be discussed in further detail at your follow- up appointment, if applicable. Please Follow Up With: Fernando Hines MD When: 1:30 Today
--- NOTE | 2020-03-01 10:00 | CASEMGMT ---
RN CM in to discuss discharge needs with patient. Patient denies needs at discharge. Patient had no further questions or concerns at this time.
[2020-03-01 10:05] VITALS: BP 105/65; PULSE 70; RESP 18; TEMP 36.6; O2SAT 98
[2020-03-01] MEDS: Citalopram 20 MG Tablet PO (10:06)
[2020-03-01] MEDS: predniSONE 20 MG Tablet 80 MG PO (10:06)
[2020-03-01] MEDS: Enoxaparin 40 MG/0.4 ML Syringe SC (10:06)
[2020-03-01] MEDS: Famotidine 20 MG Tablet PO (10:06)
--- NOTE | 2020-03-01 10:19 | PHA.DC.MR ---
Pharmacy Service has performed discharge medication reconciliation for this patient. The patient's discharge medication list was reviewed for discrepancies and discrepancies were resolved. Home Medications Citalopram [Celexa] 20 mg PO DAILY 07/25/19 predniSONE tablet 80 mg PO DAILY@0800 #120 tab 03/01/20
--- NOTE | 2020-03-01 12:31 | DS.PCM_ITS ---
Discharge Date and Diagnosis - Problem List Patient Problems: Active and Suspected Problems (Last Updated 02/25/20 @ 23:[address] Frank Reeves MD) Adverse drug reaction (Acute) Fever and chills (Acute) UTI (urinary tract infection) (Acute) Diffuse papular rash (Acute) Fever (Acute) UTI (urinary tract infection) (Acute) Drug reaction (Acute) Lactic acidosis (Acute) Date of Admission: 02/25/20 Date of Discharge: 03/01/20 - Primary Discharge Diagnosis Acute Problems: Active Problems (Last Updated 02/25/20 @ 23:[address] Frank Reeves MD) Adverse drug reaction (Acute) Fever and chills (Acute) UTI (urinary tract infection) (Acute) Diffuse papular rash (Acute) Fever (Acute) UTI (urinary tract infection) (Acute) Drug reaction (Acute) Lactic acidosis (Acute) Hospital Course and Treatment Imaging Results: Clinical Impression(s) from Imaging Studies Chest X-Ray 02/25/20 17:15 IMPRESSION: No acute thoracic pathology. Electronically Signed: Dimitri Stevens MD at 17:28 EST Tel , Service support , Operations: None Procedures: None Summary of Care Provided: Per HPI: The patient is a 59 year old F with a significant history of depression who presents to the emergency department with diffuse itchy rash that started a day before presentation. Her symptoms started after completing a 7-day course of antibiotics. His symptoms started on the same day that she took her last prescribed dose of Keflex for questionable UTI. Because of this rash, she went to the urgent care a day before her presentation and she was given a steroid taper. Reportedly she was told that the rash may be from Covid. However a Covid test at the urgent care was negative. At the time of present to the emergency department she had taken 4 pills of 10 mg of prednisone. She reports that from February 11 to February 14 2020 she had excruciating lower abdominal pain. On February 16, 2020 she went to the urgent care and was diagnosed with UTI and was started on Keflex. Later she was called and notified that urine culture was negative. However she went ahead to complete the course of keflex antibiotics. On the morning of this presentation she had a home temperature of 102.8 Fahrenheit. Also 2 days ago she had chills. At the emergency department she was given Solu-Medrol; Benadryl and ciprofloxacin. Reportedly her chills improved at the emergency department after treatment. Hospital Course: 1. 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 The rash became more extensive and there is initially significant concern for SJS and worsening and possibly needing to be transferred to a burn center. However she had no mucosal involvement no difficulty with any bowel movements or bleeding with any bowel movements. She not have any open sores or skin sloughing and she was started on high-dose steroids which she will be continued on discharge. Since initiation of steroids her rash has started improving and in discussion with outpatient dermatology they have agreed to see her today at the day of discharge at 1:30 PM. She did have a punch biopsy from her last calf, and the pathology is currently pending. We will plan to discharge her today on 80 mg of prednisone daily and will allow dermatology to manage her taper as an outpatient. I discussed with her the plan for discharge today and she expressed understanding of the risk and benefits and would like to go home. She states that she has been sleeping well the last 2 days that the rash is less warm, less itchy and much less painful. 2. Acute cystitis-her UA was consistent with UTI however she had completed 7 days of an antibiotic and her urine culture was mixed gram-positive gram- negative. She did have a presumptive micrococcus in her blood however that was an only 1 out of 4 blood culture vials and repeat blood cultures 2 days later did not demonstrate the organism therefore it was likely contaminant Patient Problems: Active and Suspected Problems (Last Updated 02/25/20 @ 23:[address] Frank Reeves MD) Adverse drug reaction (Acute) Fever and chills (Acute) UTI (urinary tract infection) (Acute) Diffuse papular rash (Acute) Fever (Acute) UTI (urinary tract infection) (Acute) Drug reaction (Acute) Lactic acidosis (Acute) - Physical Exam Vitals/I&O's: Vital Signs Temp Pulse Resp BP Pulse Ox 97.8 F 70 18 105/65 98 03/01/20 10:05 03/01/20 10:05 03/01/20 10:05 03/01/20 10:05 03/01/20 10:05 Oxygen Delivery Method Room Air Weight: 177 lb 4.8 oz Body Mass Index (BMI) 30.4 Intake and Output for Last 24 Hours 02/28/20 02/29/20 03/01/20 23:59 23:59 23:59 Intake Total 1949 400 / 400 Balance 1949 400 / 400 General: Alert, Oriented x3, Cooperative, No apparent distress HEENT: Atraumatic, PERRLA, EOMI, Normocephalic Oral: Moist Mucosa, No Gingival or Mucosal Lesions/ Ulcerations Neck: Supple, No JVD Lungs: Normal air movement, No rhonchi, No wheeze, No rales Cardiovascular: Regular rate, Regular Rhythm, Normal S1, Normal S2, No murmurs Abdomen: Soft, Non Tender, Non-Distended, No Hepato-splenomegaly Extremities: No edema, Capillary Refill Less than 3 Seconds Skin: - - Diffuse rash covering almost 100% of her body surface. It is nonraised minimally tender. Does not alex. No mucosal involvement. Site of punch biopsy is clean dry and intact Neurological: Neuro grossly intact, Sensory exam intact to light touch and pain Psych/Mental Status: Normal Affect, Appropriate Microbiology Past 72 Hours 02/27/20 06:30 Blood Culture (Wb) - Left Hand Blood Culture - Preliminary No growth in 48 hours. 02/27/20 06:00 Blood Culture (Wb) - Right Hand Blood Culture - Preliminary No growth in 48 hours. 02/25/20 18:15 Blood Culture (Wb) - Anticubital Left Bacteria Detection (PCR) - Final 02/25/20 18:15 Blood Culture (Wb) - Anticubital Left Blood Culture - Preliminary Presumptive Micrococcus spp. 02/25/20 17:00 Blood Culture (Wb) - Anticubital Left Blood Culture - Preliminary No growth in 48 hours. 02/25/20 18:00 Urine, Clean Catch Urine Culture - Final Mixed Gram Pos & Gram Neg Org Discharge Activity: Return to Normal Activity Call your doctor if you observe: Fever of 101 or Higher, Shortness of breath, Dizziness, Fainting spells, Swelling in the ankles, Chest pain, Increased palpitations (irregular heartbeat) Home Medications: Medications to take at Discharge Citalopram [Celexa] 20 mg PO DAILY 07/25/19 predniSONE tablet 80 mg PO DAILY@0800 #120 tab 03/01/20 Following Prescriptions Were Given to Patient: predniSONE tablet 80 mg PO DAILY@0800 #120 tab Transmission Status: Received by [facility] Primary Care Physician: Luciano Peoples MD [Primary Care Provider] - Please follow up with your Primary Care Physician in: 3-5 days Please Follow Up With: Fernando Hines MD When: 1:30 Today Disposition: Home Minutes spent on discharge:: 35 Patient Condition:: Stable Medical Necessity - Tobacco Use Smoking Status: Never smoker Meaningful Use Info Meaningful Use Diagnoses (Choose all that apply): None applicable Inpatient E&M: 44059 Disch Hosp
[2020-03-02 09:33] LABS: Pathology Skin Biopsy SEE PATHOLOGY REPORT
== END 2020-03-01 12:26 | disposition home or self-care (01) | DRG 607 ==
LOC: ED 16:56 → MS3 23:57
PROVIDERS: Internal Medicine; Nurse Practitioner Family; Admitting Provider Hospitalist; Emergency Provider Emergency Medicine; PCP Internal Medicine; Visit Provider Family Medicine
DX: L27.0 Generalized skin eruption due to drugs and medicaments taken internally (principal); N30.00 Acute cystitis without hematuria; T36.1X5A Adverse effect of cephalosporins and other beta-lactam antibiotics, initial encounter; F32.9 Major depressive disorder, single episode, unspecified; F41.9 Anxiety disorder, unspecified; Z79.899 Other long term (current) drug therapy
CPT/HCPCS: 36415; 71045; 80048; 80053; 81001; 83605; 84484; 85025; 85027; 85652; 86140; 87040; 87086; 87088; 87149; 87635; 88305; 88312; 93005; 99285; J7040; A4216; J0744; U0002

== ENCOUNTER → 2020-07-18 | Outpatient (CLI) | payer OTHER, SELFPAY ==
[2020-02-26 01:37] VITALS: BMI 30.4
--- NOTE | 2020-07-18 11:02 | COLBX_PTH ---
PATIENT: DAVEY CARRASQUILLO [facility] U#:[id number] AGE/SX: 60/F ROOM: RE07/18/[address]: Dr. Vamsi Zepeda MD : 1960 BED: DIS: 07/18/2020 SPEC #: [id number] RECD: 07/18/20 15:03 STATUS: LIOR COOK #: [id number] SONU: 07/18/20 11:[address]: Vamsi Zepeda DEPT: SURGICAL PATHOLOGY RECD BY: Kristi Conteh ENTERED: 07/19/20 08:29 SP TYPE: COLON BX OTHR DR: Dr. Luciano Peoples MD Tissues: A - Rectum, NOS B - Anal region Procedures: Surgery Specimen Level IV HEADER OPERATION: Colonoscopy PRE-OP DIAGNOSIS: History of colon polyps TISSUE SUBMITTED: A ? Rectal polyp, B ? Anal polyp MICROSCOPIC DIAGNOSIS A. Rectal polyp, biopsy: Hyperplastic polyp. B. Anal polyp, biopsy: Fragments of serrated adenoma. AM:lida 07/20/2020 MICROSCOPIC DESCRIPTION Slides are reviewed. GROSS DESCRIPTION A - Received in fixative is one container labeled with the patient's name and designated rectal polyp. The specimen consists of one irregular fragment of light berkowitz soft tissue that measures 0.2 x 0.1 x 0.1 cm. The specimen is totally submitted in one cassette. B - Received in fixative is one container labeled with the patient's name and designated anal polyp. The specimen consists of multiple irregular fragments of light berkowitz soft tissue that in aggregate measure 2 x 1 x 0.2 cm. The specimen is totally submitted in one cassette. / AM:lida 07/19/20 TC:5 [facility]: [id number] x2
== END | disposition home or self-care (01) ==
LOC: LABSPEC 15:09
PROVIDERS: PCP Internal Medicine; Visit Provider Surgery
DX: K62.1 Rectal polyp (principal)
CPT/HCPCS: 88305

== ENCOUNTER → 2020-08-07 12:49 | Outpatient (CLI) | payer OTHER, SELFPAY ==
[2020-02-26 01:37] VITALS: BMI 30.4
--- NOTE | 2020-08-07 13:10 | CT_ITS ---
STUDY: CT LEFT LOWER EXTREMITY WITHOUT CONTRAST REASON FOR EXAM: Valgus deformity of the left knee, osteoarthritis, surgical planning. TECHNIQUE: Transaxial CT imaging of the knee was performed. Coronal and sagittal images were reformatted. Individualized dose optimization techniques were used for this CT. COMPARISON: Radiographs 07/25/2019. FINDINGS: Knee: There are central osteophytes of the medial femorotibial compartment with preservation of joint space. There are marginal osteophytes of the lateral femorotibial compartment with preservation of joint space. There are marginal osteophytes, mild subchondral cystic change and joint space narrowing of the patellofemoral articulation (sagittal reconstruction 38). Normal proximal tibiofibular articulation. There is a joint effusion (sagittal reconstruction 43). The quadriceps tendon is grossly normal. The patellar tendon is grossly normal. Normal Hoffa''s fat pad. There is a small popliteal cyst (sagittal reconstruction 25). Hip: There is preservation of joint space of the left hip. There is a herniation pit in the lateral aspect of the left femoral neck (coronal reconstructions 59). Ankle: Normal tibiotalar, posterior subtalar, talonavicular and calcaneocuboid articulations. There is a very small plantar calcaneal enthesophyte. CT/Extremity Lower without Contra IMPRESSION: Osteoarthritis of the left knee. Joint effusion of the left knee. Small popliteal cyst. Electronically Signed: Quinton Chin MD at 14:49 EDT Tel , Service support ,
== END ==
PROVIDERS: PCP Internal Medicine; Referring Provider Specialist; Visit Provider Specialist
DX: M21.062 Valgus deformity, not elsewhere classified, left knee (principal)
CPT/HCPCS: 73700

== ENCOUNTER 2020-08-23 06:43 | Day surgery (SDC) | payer OTHER, SELFPAY ==
[2020-02-26 01:37] VITALS: BMI 30.4
--- NOTE | 2020-08-07 12:55 | PCM.HP.BLA ---
History and Physical History and Physical [facility] Patient Name: Adelaide Mckay : 1960 From: PARUL ROBISON PA-C DATE OF SURGERY: 08/23/2020 SCHEDULED PROCEDURE: left total knee arthroplasty HISTORY OF PRESENT ILLNESS: Preoperative history and physical exam was performed on August 07, 2020. This is a 60-year-old female who has had progressive worsening knee pain that has been going on for several years duration. She states pain history when she was in adolescence. Her pain can still reach an 8/10 with activities. Her pain is constant, dull, aching, sharp. She states over the past 3-5 years her pain is progressively become worse. She has difficulty and pain going up and down stairs. Her pain is located behind her kneecap. She does complain of weakness and swelling. She has been seen in the ER on separate occasions due to the swelling and thinking she had a blood clot. Pain does occasionally wake her at night. She has difficulty with housework and shopping. Difficulty with anything that requires a lot of walking or standing. She feels unsafe picking up her grandchildren due to the pain. She has attempted rest, ice, heat, elevation with minimal to no relief. She has tried oral medications including Aleve with only minimal relief. She denies previous surgery on the knee. However patient does recall previous dislocations of the left patella in her teenage years on 2 separate occasions. Patient has tried brace with no relief in symptoms. After failing conservative measures and discussing treatment options with Dr. Dimitri Suresh, the patient does wish to proceed with a left total knee arthroplasty. Patient only has medical history pertinent for depression. Denies any recent chest pain, shortness of breath, fevers chills, recent infections. We are obtaining surgical clearance from the primary care physician. 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 REVIEW OF SYSTEMS: ROS: Const: Denies anorexia, anxiety, change in appetite, fever and weight change,hard of hearing, and vision problems. CV: Denies chest pain, heart murmur, irregular heartbeat and peripheral vascular disease. Resp: Reports cough, but denies asthma, pneumonia, sleep apnea, SOB, tuberculosis and wheezing. GI: Denies constipation, diarrhea, heartburn, nausea, bloody stools and vomiting, and difficulty swallowing. : Urinary: denies incontinence. Musculo: Denies leg swelling, trouble walking and weakness and limp. REPORTS LE SWELLING, WEAKNESS AND LIMP Skin: Denies Raynaud's, history of shingles and tattoo. Neuro: Denies ambulatory dysfunction, dizziness, numbness/tingling and tremor. Psych: Reports anxiety and depression, but denies insomnia, mental illness and stress. Ray/Lymph: Denies anemia, bleeding/bruising tendency and past transfusion. Reviewed and updated. PAST MEDICAL HISTORY: Advance Care Plan: No Advance Directives Effective Date: 02/21/2020 PMH: Medical Problems: None Accidents: None Surgical Hx: None Anesthesia Complications: None Assistive Devices: None Reviewed, no changes. 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 Personal Habits: Cigarette Use: Never.Alcohol: Denies use.Drug Use: Denies Use.Enjoy Exercising: Exercises 1-3 x/month. Reviewed, no changes. VITALS: Ht: 63.8 Wt: 174lb Wt k.[id number] BMI: 30.1 BP: 127/86 Pulse: 86 Resp: 12 T: 97.4 T: 36.3C Pain Level: 4 ALLERGIES: Sulfa EX-Lax Ultra Keflex - Severe MEDICATIONS: Oxycodone HCL 5 mg 1-2 tab by mouth every 4 hours, Meloxicam 7.5 mg 1 by mouth twice a day with food, Promethazine HCL 12.5 mg 1-2 tablets by mouth every 6 hours, Famotidine 20 mg 1 by mouth every day, Maxalt-PRODUCE BUYER 5 mg prn, Celexa 20 mg 1po qday PRE-OP EXAM: General appearance:NORMAL Other: Eyes: Conjunctivae and lids: NORMAL Pupils: ERR Ears, Nose, Mouth, and Throat: NORMAL Other: Inspection of lips, teeth and gums: NORMAL Other: Neck: Examination of neck: no masses noted. Respiratory: Assessment of respiratory effort: NORMAL Other: Auscultation of lungs: clear to auscultation no wheezes, rhonchi or rales. Cardiovascular: Auscultation of heart: regular rate and rhythm, no murmurs, gallops or rubs. Exam of carotid arteries: NORMAL Other: Gastrointestinal: Exam of abdomen: soft, nontender, nondistended bowel sounds present. PHYSICAL EXAMINATION: Patient does walk with an antalgic gait. Left knee does have valgus alignment which is correctable on exam. Trace effusion. She has tenderness to palpation surrounding the medial lateral patella. There is also tenderness to palpation over the lateral joint line. Range of motion: 0 extension to 110 flexion. Sensation intact to light touch. IMAGING STUDIES: Previous x-rays of the left knee reveal severe tricompartmental osteoarthritis with most severe in the patellofemoral compartment with lateral subluxation of the patella and complete erosion of the lateral patellofemoral joint. IMPRESSION: 1. Severe left knee osteoarthritis 2. Right knee osteoarthritis 3. Depression 4. History of Kaiser-Miguelito syndrome with Keflex PLAN: Dr. Dimitri Suresh did discuss and review with the patient all treatment options including surgical versus nonsurgical options. Patient does wish to proceed with the above-stated procedure. Potential risks, benefits, and complications of the procedure were discussed in detail including but not limited to , infection, nerve and blood vessel damage, persistent pain, numbness, tingling, paresthesias, blood clot, pulmonary embolism, and requirement for possible further surgery. The patient expressed full understanding and has no further questions for the doctor. Patient does agree to proceed with the above-stated procedure and has signed the surgery consent form. We discussed the current risks associated with COVID 19. This does include the risk of exposure while in the hospital. Patient was reassured local hospitals have low infection rates and are taking all necessary precautions to avoid exposure to patients. In addition, we discussed strategies that can be used to help limit exposure including those that limit the patient's time in the hospital. Also using strategies to limit the patient's need for continued inpatient services after being discharged from the hospital. Patient was notified that we will need to comply with any screening or testing the hospital wishes to perform or that surgery may be delayed for any positive results. This dictation was created using voice recognition software. Phonetic and/or grammatical errors may exist. ___ I have re-examined the patient. There are no clinical changes since date of exam. ___ See progress notes for changes. ___ Dictated on admission Date: Time: Signature:
--- NOTE | 2020-08-16 10:24 | EKG12_ITS ---
Test Reason : PREOP Blood Pressure : / mmHG Vent. Rate : 086 BPM Atrial Rate : 086 BPM P-R Int : 144 ms QRS Dur : 082 ms QT Int : 392 ms P-R-T Axes : 054 -06 043 degrees QTc Int : 469 ms Normal sinus rhythm Incomplete right bundle branch block Confirmed by DULCE STUBBS, SOHAN ([id number]), mapping editor AMADEO BENOIT ([id number]) on 08/21/2020 1:21:43 PM Referred By: Dimitri Suresh Confirmed By:SOHAN CARDONA MD
[2020-08-16 11:45] LABS: Absolute Lymphocyte Count 2.14 X10^3/uL (0.83-4.51); Basophil# 0.03 X10^3/uL; Basophil% 0.5 % (0-1); Eosinophil# 0.08 X10^3/uL; Eosinophils% 1.4 % (0-5); Hematocrit 36.9 % (37-47); Lymphocyte # 2.14 X10^3/ul (0.83-4.51); Mean Corp Hgb Conc 32.5 g/dL (32-36); Mean Corpuscular Volume 89.1 fL (81-99); Mean Platelet Vol. 10.9 fl (6.2-12.0); Monocyte% 8.7 % (0-10); NRBC Flagged by Analyzer 0 % (0-5); Neutrophil % 51.9 % (47-70); Platelet Count 375 K/mm3 (150-450); RBC Distribution Width CV 13.7 % (11.6-14.6); RBC Distribution Width SD 44.6 fl (35.1-43.9); Red Blood Count 4.14 M/mm3 (4.2-5.4); White Blood Count 5.8 K/mm3 (4.4-11.0)
[2020-08-16 12:18] LABS: Magnesium 1.9 mg/dL (1.6-2.6)
[2020-08-16 13:20] LABS: Anion Gap 4 (5-15); BUN 8 mg/dL (7-18); BUN/Creat Ratio 11.3 RATIO (10-20); Chloride 106 mmol/L (98-107); EST Glomerular Filtration Rate 90 mL/min (>60); Est Glom Filt Rate - Afr Amer 109 mL/min (>60); Glucose 83 mg/dL (74-106); Potassium 3.7 mmol/L (3.5-5.1); Sodium Level 138 mmol/L (136-145)
[2020-08-23] VITALS (14 sets, daily range): BP systolic 93–142; BP diastolic 49–86; PULSE 78–94; RESP 16–18; TEMP 36.1–36.9; O2SAT 96–100; BMI 28.8
--- NOTE | 2020-08-23 07:04 | RAD_ITS ---
STUDY: X-RAY - LEFT KNEE REASON FOR EXAM: Female, 60 years old. New total knee arthroplasty. TECHNIQUE: 2 view(s) of the knee. COMPARISON: 07/25/2019 FINDINGS: There is a 3 component total knee arthroplasty in anatomic position. There are expected post-operative findings. There are no complications. No other significant abnormality is identified. RAD/Knee 1 or 2 Views IMPRESSION: Total knee arthroplasty in anatomic alignment without complications. Electronically Signed: Brandon Chery MD at 9:41 EDT , Service support ,
--- NOTE | 2020-08-23 07:07 | OP.PCM_ITS ---
Report of Operation Pre-Operative Diagnosis: Left hip primary osteoarthritis Post-Operative Diagnosis: Left hip primary osteoarthritis Surgery/Procedure Performed:: Left minimally invasive direct anterior hip replacement Description of Surgical Findings:: Stable hip with equal leg lengths Surgeon: Dimitri Suresh Type of Anesthesia: Spinal Special Medications: 2 g Ancef, 1 g TXA at incision, 1 g TXA closure, 10 mg Decadron, joint cocktail (5 mg Duramorph, 30 mL of 0.5% Ropivicaine, 1000 units of epinephrine, 30 mg of Toradol) Specimen's removed: Bony cuts Description of Procedure: Components used: 1. Accolade 2 Deidre femoral stem size [] 127? 2. Deidre trident 2 acetabular shell size [] mm 3. [place] X3 polyethylene [] 4. Deidre Biolox delta []mm, []mm femoral head Brief history operative indications: [] yo [] who failed conservative measures for their hip osteoarthritis. X-rays were consistent with osteoarthritis including joint space narrowing, osteophyte formation and subchondral cysts. Total hip replacement was discussed with the patient with risks and benefits including but not limited to blood loss, DVTs, PEs, neurovascular damage, dislocation, general risks of anesthesia including loss of life. Patient demonstrated an understanding medical clearance is obtained the patient was consented for surgery. Procedure: On the date of procedure the patient's L hip was marked in the preoperative area. Patient was then taken back to the operating room where anesthesia assumed control of the C-spine and airway and administered anesthetic. Patient was transferred to the operating table and placed in the supine position. The hips were placed at the break of the bed and a sacral bump was placed. L The lower extremity was then prepped out in a sterile fashion using chlorhexidine while the surgeon scrubbed. The PA was vital in the positioning of the patient. Upon reentering the room the left lower extremity was draped in the standard orthopedic fashion and the incision was marked. A timeout was called and everyone agreed upon the side, the site, the procedure be performed, antibody given, and patient's identity. At this time incision was made through skin, subcutaneous tissue, and fat down to fascia. The fascia was then incised and the TFL was retracted laterally. A retractor was placed on the lateral border of the femoral neck. Attention was directed to the inferior portion of the approach and all crossing vessels were identified and appropriately coagulated. A retractor was then placed on the medial portion of the femoral neck. The anterior capsule was then cleared of all soft tissue and then H shaped capsulotomy was made. The retractors were then placed inside the capsule. The femoral neck was identified and a cleanup cut was made. At this time a power corkscrew was used to remove the femoral head. Attention was then turned toward the acetabulum where the soft tissues were appropriately retracted and the acetabulum was sequentially reamed to [] mm. A [] mm cup was then selected and impacted into place. Acetabular liner was impacted into place and locking mechanism was verified. The position of the acetabular cup was then verified under live fluoroscopy. Attention was then turned to the femur. Soft tissue releases on the medial and lateral femoral neck were appropriately done, the leg was externally rotated and lateralized. A Dumont retractor was placed medially and proximally to the greater trochanter this allowed appropriate visualization and exposure of the femoral canal. Rongeour was then used to remove excess lateral bone. A canal finder and entry broach were used to open the proximal canal. Once we verified we were down the femoral canal we subsequently broached up to a size [] femur. The appropriate neck was placed in the previously selected head was trialed with a [] mm neck. Traction was pulled and the hip was reduced with internal rotation. Once it was appropriately reduced and stability was checked. There was minimal shuck, equal leg lengths and appropriate stability with hyperextension and external rotation as well as with 90? flexion and internal rotation. Fluoroscopy was then also used to verify the position of the components and leg lengths using the contralateral side for comparison. The trial components were then dislocated the proximal femur was again exposed and the components were removed from the wound. The final components were verified and opened. The wound was copiously irrigated out with normal saline. The acetabulum was checked for any residual debris. The final components were placed and impacted. Traction and internal rotation were again used to reduce the hip. After adequate reduction the hip remained stable with appropriate leg lengths. The final components were once again checked with live fluoroscopy and were found to be satisfactory. The wound was then copiously irrigated with normal saline once more, and hemostasis was obtained. Closure was then done using #1 Vicryl runner to close the fascia. A 2-0 vicryl interuppted sutures were used to close the subcutaneous skin. A 3-0 Monocryl and Steri-Strips were used for final skin closure. A Silverlon dressing was placed. Patient was awakened by anesthesia and transferred to the [facility]. Kadeem lemos was then transferred to the PACU for recovery. Postoperative plan: Patient will get 24 hours postop antibiotics. Patient will get in-house physical therapy and will be weight-bear as tolerated. Patient will follow up in office in 2 weeks for a wound check and x-rays. Aspirin 81 mg twice daily. Complications No intraoperative complications Admit VTE Documentation VTE Present on Admission: No VTE Mechan Device Prophylaxis: SCD's and Thigh High JIMENA Hose VTE Pharm Prophylaxis ordered?: Yes
[2020-08-23] MEDS: Scopolamine 1mg/72hr Patch 1 PATCH TD (07:15)
--- NOTE | 2020-08-23 07:23 | OP.PCM_ITS ---
Report of Operation Date of Procedure: 08/23/20 Pre-Operative Diagnosis: Left knee primary osteoarthritis Post-Operative Diagnosis: Left knee primary osteoarthritis Surgery/Procedure Performed:: Left knee minimally invasive robotic assisted total knee replacement Description of Surgical Findings:: Stable knee with good patella tracking Surgeon: Dimitri Suresh sales ambassador: Nathanael Reese Type of Anesthesia: Spinal Anesthesiologist: Pablito Delarosa Special Medications: 2 g Ancef, 1 g TXA at incision, 1 g TXA closure, 10 mg Decadron, joint cocktail (5 mg Duramorph, 30 mL of 0.5% Ropivicaine, 1000 units of epinephrine, 30 mg of Toradol) Specimen's removed: Bony cuts, hemarthrosis noted on entry into the joint brownish synovium and distal femoral cartilage consistent with hemosiderin laden synovium Estimated Blood Loss (mL): 100 Fluids Replaced: 1500 mL crystalloid Description of Procedure: Implants used: 1. Deidre size 4 triathlon cruciate retaining distal femoral press-fit compo nent 2. Deidre size 3 press-fit tritanium tibial baseplate 3. [place] X3 11 mm CS polyethylene 4. [place] X3 32 mm press-fit asymmetric patella Brief history operative indications: 60-year-old F with history of left knee osteoarthritis with radiographic findings with loss of joint space, osteophyte formation and subchondral sclerosis. Failed conservative measures as mentioned in the H&P. Discussion of total knee arthroplasty as well as risk and benefits were discussed the patient including but not limited to blood loss, DVTs, PEs, neurovascular damage, general risk of anesthesia including loss of life, and stiffness or instability were discussed with patient. Patient demonstrated understanding and was able to sign informed consent. Procedure: On the date of procedure patient's left lower extremity was marked in the preoperative area. The patient was then taken back to the operating room where the patient was placed on the table in the supine position. All bony prominences were identified a well-padded. Anesthesia assumed control of the C-spine and airway and remained controlled throughout the remainder of the procedure. A tourniquet was placed on the left upper thigh and the leg was prepped in a sterile fashion. The surgeon then scrubbed at this time .Upon reentering the room left lower extremity was draped in a standard orthopedic fashion. A timeout was then called and everyone agreed upon the side, the site, the procedure to be performed, patient's identity and antibiotics given. Esmarch bandage was used to exsanguinate the extremity and the tourniquet was placed up to 250 mmHg with the knee in flexion. A midline skin incision was made and sharp dissection was taken down through skin subcutaneous tissue and fat. The standard medial parapatellar incision was made and the patella was subluxed laterally. An Appropriate deep MCL release was done and the fat pad was resected. Our attention was then directed to the patella. The patella was everted and a flat resection was made. The knee was then flexed up in 2 femoral pins were placed inside the incision and 2 tibial pins were placed outside the incision in the medial tibia bicortically. Once this was completed the 2 checkpoints in the femur and tibia were placed. Knee was then flexed up and the bony landmarks were registered. Once this was completed knee was taken through range of motion and manually stressed allowing us to a plan for an appropriate tibial cut. The robotic arm was brought into the field sterilely and checkpoint and saw were registered. Based on the patient's deformity the tibial cut was made in neutral. At this time the tensioner was then placed in the joint and ligament tension was checked at 90 degrees and full extension. During the course of this the popliteus was released. Based on the patient's ligamentous tension appropriate adjustments were made to the operative plan and ligament releases were done. Once we were happy with our operative plan with balanced flexion and extension gaps our attention was directed to the femur. The robot was brought into the field sterilely and registered. Posterior condylar cuts, anterior chamfer cuts and anterior cuts were appropriately made for a size 4 femur. When these were completed the saws were switched out in the distal femoral and posterior chamfer cuts were made. Protecting the soft tissue throughout this time. A size 3 she get a Mediport tibial base plate was selected. the knee was flexed to 90 degrees and the soft tissues and posterior osteophytes were removed from the joint. 40 cc of the periarticular injection was injected into the posterior medial corner of the joint. The appropriate trials were then placed on the femur and tibia. A trial polyethylene was trialed to ensure proper balancing and stability of the knee. The appropriate tibial internal rotation was then marked with a bovie. Our attention was then directed to the patella. The lug holes were drilled and the patella trial was placed. Patellar tracking was checked and deemed appropriate. Once we were happy lug holes were drilled for the femur and trial components were removed. the tibia was subluxed and pinned into place and the keel was punched and drilled appropriately. Final components were verified and opened, and cement was mixed in a vacuum. [place]ville Simplex cement was used. The wound was copiously irrigated with normal saline. When the cement was ready the components were impacted into place starting with the tibia, femur and finally cementing the patella. The trial poly component was placed and the knee was placed in full extension. All excess cement was removed in the process. Once the cement had cured the tracking, alignment and balance were verified and a size 11 mm CS medial lateral polyethylene component was placed. Once the final components were placed a 3-minute dilute Betadine lavage was performed followed by an Irrisept lavage was performed and the wound was copiously irrigated with normal saline solution and the periarticular injection was given. The wound was closed in a layer hines fashion using #1 vicryl interrupted sutures for the arthrotomy, 2-0 interrupted Vicryl suture for the s ubcuticular layer and shane for final skin closure. A sterile compressive dressing was then placed. The patient was then awakened from anesthesia, transferred to the [place] and transferred to the PACU for recovery. Post op plan DVT ppx: ASA 81mg BID, thigh high compression stockings Follow up: in office in 2 weeks for wound check PT: to start POD #0 at hospital, outpatient PT should be arranged. My physician facilities maintenance assistant was a vital part of this case. He was important in appropriate retraction during the case, and protection of soft tissues during bony cuts. His intimate knowledge of the case and my steps aided in safe and expedient completion of the procedure as well as appropriate position of the leg during the case. He was also vital in assisting with closure under my direct supervision. Due to the complexity of this case robotic arm was used to assist in the surgery to improve accuracy and clinical outcomes. Complications No intraoperative complications Admit VTE Documentation VTE Present on Admission: No VTE Mechan Device Prophylaxis: SCD's and Thigh High JIMENA Hose VTE Pharm Prophylaxis ordered?: Yes
[2020-08-23] MEDS: Gabapentin 600 MG Tablet PO (07:38)
[2020-08-23] MEDS: Acetaminophen 500 MG Tablet 1000 MG PO (07:38)
[2020-08-23] MEDS: Lactated Ringers 1,000 ML 999 ML IV ×2 (07:39→11:54)
[2020-08-23 08:06] LABS: Bedside Glucose 105 mg/dL (70-110)
--- NOTE | 2020-08-23 09:15 | KNEE_PTH ---
PATIENT: DAVEY CARRASQUILLO LOC: [facility] [place] U#:[id number] AGE/SX: 60/F ROOM: RE08/23/[address]: Dr. Dimitri Suresh MD : 1960 BED: DIS: 08/23/2020 SPEC #: [id number] RECD: 08/23/20 12:38 STATUS: LIOR COOK #: [id number] SONU: 08/23/20 09:[address]: Dimitri Suresh DEPT: SURGICAL PATHOLOGY RECD BY: Olga Pineda ENTERED: 08/23/20 13:28 SP TYPE: TOTAL KNEE OTHR DR: Dr. Luciano Peoples MD Tissues: A - Knee, NOS B - Synovial tissue of joint, NOS Procedures: Decalcification bone/plaque Special Stain Group II Surgery Specimen Level IV Iron Stain (control) HEADER OPERATION: ERAS, total knee replacement robotic arm assist PRE-OP DIAGNOSIS: Severe left knee osteoarthritis TISSUE SUBMITTED: A ? Bone and tissue left knee, B ? Synovium tissue left knee MICROSCOPIC DIAGNOSIS A. Bone and tissue of left knee, total knee resection: Severe degenerative joint disease. Synovial hyperplasia with associated mild chronic inflammation. B. Synovium of left knee, biopsy: Synovial hyperplasia with associated mild chronic inflammation. Intraparenchymal iron deposition consistent with remote hemorrhage. See comment. AM:lida 08/28/2020 COMMENT Iron stain with matched control was used in the evaluation of this case. MICROSCOPIC DESCRIPTION Slides are reviewed. GROSS DESCRIPTION A - Received is one container designated bone and soft tissue left knee. The specimen consists of multiple fragments of berkowitz-yellow bone measuring in aggregate 10 x 8 x 3 cm. Also in the specimen container are multiple fragments of yellow-white soft tissue, predominantly cartilaginous tissue, measuring in aggregate 7 x 5 x 0.6 cm. A number of bony fragments contain articular surfaces consistent with tibial plateau and femoral condyle and displaying prominent osteophyte formation, eburnation, and bone erosion. The bone and soft tissue shows bluish discoloration. Pharmaceutical Process Engineer sections are submitted in four cassettes as follows: 1 - soft tissue, 2-4 - bone after decalcification. B - Received in fixative is one container labeled with the patient's name and designated synovial tissue of left knee. The specimen consists of a piece of soft tissue measuring 2.5 x 2.5 x 1 cm. No mass lesion is identified. Pharmaceutical Process Engineer sections are submitted in one cassette. / SJ:rg 08/23/20 TC:3 CPT: 23138 x2, [id number], [id number]
[2020-08-23] MEDS: dexAMETHasone 10 MG/ML Vial IV (09:31)
[2020-08-23] MEDS: Lactated Ringers 1,000 ML 75 ML IV (10:15)
[2020-08-23] MEDS: Clindamycin 900 MG/50 ML BAG 75 MG IV (14:14)
== END 2020-08-23 17:14 | disposition home or self-care (01) ==
LOC: SDC 06:44 → AC 06:45
PROVIDERS: Anesthesiology; PCP Internal Medicine; Referring Provider Specialist; Visit Provider Specialist
PROC: 0SRD0JZ Replacement of Left Knee Joint with Synthetic Substitute, Open Approach (ICD-10-PCS; CPT 27447; principal; 2020-08-23 08:45)
DX: M17.12 Unilateral primary osteoarthritis, left knee (principal); F41.9 Anxiety disorder, unspecified; F32.9 Major depressive disorder, single episode, unspecified; Z79.899 Other long term (current) drug therapy
CPT/HCPCS: 01402; 27447; 36415; 73560; 80048; 82962; 83735; 85025; 87081; 87426; 88305; 88311; 88313; 93005; 97162; C1776; C9803; J7050; J7120

== ENCOUNTER → 2020-08-25 14:57 | Outpatient (CLI) | payer OTHER, SELFPAY ==
[2020-08-23 07:41] VITALS: BMI 28.8
--- NOTE | 2020-08-25 15:00 | VDLE_ITS ---
Reason For Study: PAIN Procedure LEFT Exam performed in department. GSV is normal. This is a venous duplex using B-mode, color CFV is compressible, spontaneous, phasic, flow and spectral Doppler. competent, and demonstrates normal A preliminary report was called and/or faxed augmentation. to DR SURESH. FV is compressible, spontaneous, phasic, competent and demonstrates normal augmentation. POP V is compressible, spontaneous, phasic, competent and demonstrates normal augmentation. T/P Trunk is compressible. PTV is compressible. LT PerV is compressible. VL/Venous Duplex US, Unilateral Interpretation Summary Deep veins of the left lower extremity are patent and compressible segmentally. There is no evidence of left lower extremity deep vein thrombosis. Valvular competence appears intac t within the proximal deep venous system on the left . The left great saphenous vein appears patent a nd compressible segmentally. Ordering Physician: Dimitri Suresh Referring Physician: Luciano Peoples M.D. Performed By: Arianne Luong, SYLWIA, RVT
== END ==
PROVIDERS: PCP Internal Medicine; Referring Provider Specialist; Visit Provider Specialist
DX: M79.662 Pain in left lower leg (principal); Z47.1 Aftercare following joint replacement surgery; Z96.652 Presence of left artificial knee joint
CPT/HCPCS: 93971

== ENCOUNTER 2024-03-04 15:22 | Emergency (ER) | payer OTHER, SELFPAY ==
[2024-03-04 15:24] VITALS: BP 164/126; PULSE 100; RESP 22; TEMP 36.8; O2SAT 98; BMI 28.3
--- NOTE | 2024-03-04 15:53 | EDS_ITS ---
HPI <MUKUND Gilliam - Last Filed: 03/04/24 18:08> History of Present Illness Chief Complaint: Weakness Narrative Narrative: Patient is a 63-year-old female with no significant medical history presents to the [facility] for multiple complaints. Patient states over the last 4 days, her and her have been ill. Patient states she has a cough, she also is currently being treated for a tear in her vaginal area. Patient states he is on a cream. She states that she just feels so incredibly weak, and has significant body aches. She called her primary care doctor told her the emergency department [facility] <MUKUND Gilliam - Last Filed: 03/04/24 18:08> [facility] Medical History (Updated 03/04/24 @ 18:07 by MUKUND Gilliam) Post-menopausal Anxiety Depression Arthritis Restless legs Migraine headache Loss of consciousness Heartburn Non-smoker History of pain when walking History of edema Denies any previous medical history Home Medications ?Medication ?Instructions ?Recorded ?Last Taken ?Type citalopram 20 mg tablet 20 mg PO DAILY 07/25/19 Unknown History rizatriptan 10 mg disintegrating 10 mg PO Q2H PRN Migraine Headache 08/09/20 Unknown History tablet (Maxalt-UPPERS EDGE BURNISHER) Allergy/AdvReac Type Severity Reaction Status Date / Time Sulfa (Sulfonamide Allergy Severe Rash Verified 03/04/24 15:24 Antibiotics) cephalexin (From Keflex) Allergy GUZMAN Verified 03/04/24 15:24 CLARISSE SYNDROME phenolphthalein (From Ex-Lax) Allergy Rash Verified 03/04/24 15:24 Surgical History (Updated 08/09/20 @ 14:33 by Kathleen Silva) Hx of colonoscopy Social History Smoking Status: Never smoker ROS <MUKUND Gilliam - Last Filed: 03/04/24 18:08> ROS ED ROS Narrative Constitutional: Negative for weight loss. Positive for generalized weakness. Positive fever and chills Eyes: Negative for vision loss, vision change, double vision ENT: Negative for any sore throat, ear pain, congestion Cardiovascular: Negative for any chest pain, tightness, palpitations Respiratory: Negative for any sputum production, hemoptysis, dyspnea, dyspnea on exertion, orthopnea. Positive cough Gastrointestinal: Negative for any abdominal pain, nausea, vomiting, diarrhea, constipation, blood in stool, blood in vomit : Negative for any urinary frequency, dysuria, retention, blood in urine Muscle skeletal: Negative for any neck pain, back pain. Positive generalized myalgias Neurological: Negative for any headache, syncope, dizziness Skin: Negative for any rashes, itching, abrasions, lacerations Psychiatric: Negative for any depression, anxiety, stress, suicidal ideation, homicidal ideation Hematologic: Negative for any excessive bruising, easy bleeding EXAM <MUKUND Gilliam - Last Filed: 03/04/24 18:08> Physical Exam Narrative Exam Narrative: Vital signs reviewed. Patient is ambulatory, is in no obvious distress. HEET: Head normocephalic atraumatic, TMs clear bilaterally. Posterior pharynx is clear, moist mucous membranes. Nares clear bilaterally. Neck: Supple with no lymphadenopathy or tenderness. No signs of meningismus. Cardiac: Regular rate and rhythm no murmurs gallops or rubs, equal peripheral pulses bilaterally. Respiratory: Lungs clear to auscultation bilaterally. No chest tenderness. Abdomen: Soft, nontender, nondistended. No abdominal bruit or pulsatile masses. No hepatosplenomegaly Extremities: No peripheral edema, no signs of gross trauma or deformity. Active full range of motion of all extremities. Neuro: Cranial nerves II through XII intact, no focal neurological deficits. Skin: Clean dry and intact with no rash, purpura, petechiae, vesicles or pustules. Backs/flank: No CVA tenderness, no midline spinal tenderness, no deformity. Psych: Normal mood and affect. No SI, HI or acute psychosis. 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 Patient external vaginal exam was unremarkable. I do not appreciate any laceration or irritation. Const Vital Signs: 03/04/24 15:24 03/04/24 15:43 03/04/24 17:00 Temperature 98.3 F 98.4 F Temperature Source Oral Temporal Pulse Rate 100 94 Respiratory Rate 22 H 20 H Respiratory Effort Short of Breath Respiratory Pattern Normal Blood Pressure 164/126 H 128/61 H Blood Pressure Mean 138 83 Pulse Ox 98 93 Oxygen Delivery Method Room Air Room Air 03/04/24 18:13 Temperature 98.6 F Temperature Source Pulse Rate 73 Respiratory Rate 20 H Respiratory Effort Respiratory Pattern Blood Pressure 147/73 H Blood Pressure Mean 97 Pulse Ox 95 Oxygen Delivery Method Positive well nourished and well developed General Appearance ED: well developed <Dr. Cm Blake DO - Last Filed: 03/04/24 22:25> Physical Exam Const Vital Signs: 03/04/24 15:24 03/04/24 15:43 03/04/24 17:00 Temperature 98.3 F 98.4 F Temperature Source Oral Temporal Pulse Rate 100 94 Respiratory Rate 22 H 20 H Respiratory Effort Short of Breath Respiratory Pattern Normal Blood Pressure 164/126 H 128/61 H Blood Pressure Mean 138 83 Pulse Ox 98 93 Oxygen Delivery Method Room Air Room Air 03/04/24 18:13 Temperature 98.6 F Temperature Source Pulse Rate 73 Respiratory Rate 20 H Respiratory Effort Respiratory Pattern Blood Pressure 147/73 H Blood Pressure Mean 97 Pulse Ox 95 Oxygen Delivery Method MDM <MUKUND Gilliam - Last Filed: 03/04/24 18:08> MDM Lab Data Labs: Laboratory Results - last 24 hr 03/04/24 03/04/24 16:02 16:14 WBC 4.1 L RBC 3.83 L Hgb 8.6 L Hct 28.1 L MCV 73.4 L MCH 22.5 L MCHC 30.6 L RDW Std Deviation 49.1 H RDW Coeff of Blaise 18.5 H Plt Count 311 MPV 10.9 Immature Gran % (Auto) 0.500 Neut % (Auto) 75.7 H Lymph % (Auto) 16.2 L Raleigh % (Auto) 7.4 Eos % (Auto) 0.0 Baso % (Auto) 0.2 Absolute Neuts (auto) 3.1 Absolute Lymphs (auto) 0.66 L Nucleated RBC % 0 Sodium 133 L Potassium 3.9 Chloride 103 Carbon Dioxide 24.0 Anion Gap 6 BUN 12 Creatinine 0.86 Estim Creat Clear Calc 69.65 Est GFR (MDRD) Af Amer 85 Est GFR (MDRD) Non-Af 70 BUN/Creatinine Ratio 13.9 Glucose 105 Calcium 8.6 Urine Color Yellow Urine Clarity Sl. Cloudy Urine pH 6.5 Ur Specific Dorr 1.010 Urine Protein 30 H Urine Glucose (UA) Normal Urine Ketones Negative Urine Occult Blood 25 H Urine Nitrite Negative Urine Bilirubin Negative Urine Urobilinogen Normal Ur Leukocyte Esterase 25 H Urine RBC 5-10 SEEN Urine WBC 5-10 SEEN Ur Squamous Epith Cells 0-5 SEEN Urine Bacteria 1+ Hyaline Casts 0-5 SEEN Urine Mucus 0 SEEN Radiography Diagnostic Testing: Clinical Impression(s) from Imaging Studies Chest X-Ray 03/04/24 16:17 IMPRESSION: No acute cardiopulmonary pathology. Electronically Signed: Mo Gauthier MD at 16:34 EST Reading Location ID and State: [address] [place] [address] Tel , Service support , Treatment and Re-Evaluation :: Differential diagnosis includes however is not limited to: COVID-19, influenza, RSV, electrolyte abnormality, dehydration, UTI, community-acquired pneumonia, other viral-like illness Patient appears generally well, vital signs are stable, patient is nontoxic- appearing. Patient does appear anxious, patient presents to the emergency department for 4 days of generalized malaise, fever, chills, body aches. I did order some laboratory values, CBC, BMP, COVID-19 influenza RSV swab. Two-view chest x-ray is urinalysis will also be obtained. Zofran, 1 L normal saline will be ordered. All radiologic examinations were read, reviewed by the emergency department attending. From these reads, a plan of care will be put in place. Patient's laboratory values shows a hemoglobin 8.6, in 2020, patient was 12.0. I did speak with the patient about this, she states that she did not know this. White blood cell count was 4.1 which is slightly low, chemistries were unremarkable. Urinalysis showed 1+ bacteria otherwise 5-10 white blood cells, 0-5 squamous cells 25 leukocytes, this was more closely related to dehydration. Patient was positive for influenza A. This is consistent with her symptoms as well as her who is also the emergency department who tested positive. I spoke with the patient regarding her anemia. I did offer a rectal exam and further workup, she states he would prefer to do this outpatient with her primary care doctor that she is able to get an appointment easily. At this time, I believe that this is appropriate. Patient denies any chest pain, dizziness. Patient will continue to use ibuprofen, Tylenol, she will continue to maintain hydration. She will follow-up closely with her PCP regarding her flu as well as her anemia. <Dr. Cm Blake, DO - Last Filed: 03/04/24 22:25> MDM MDM Narrative Medical decision making narrative: Attending note: I have personally performed a face to face assessment of the patient and have reviewed the LEWIS note. I personally made/approved the management plan and take responsibility for the patient management. I performed a substantive portion of the visit including all aspects of the following. My gordon findings include: Generalized fatigue and weakness 3 days. Muscle aches. Mild cough. Spouse similar symptoms a day prior who is currently being evaluated. No fevers. No urinary symptoms. Exam nontoxic vital signs stable afebrile 98% on room air. Heart and lungs were normal. Abdomen soft. Workup two-view chest x-ray interpreted myself and read by radiology shows no acute process. Labs significant for anemia hemoglobin 8.6 her last hemoglobin from 2020 was 12. Offered further workup with rectal exam for which she declined. Urine 25 leukocytes 1+ bacteria. She is asymptomatic. Influenza returned positive. She is outside the window for treatment with Tamiflu. Discussed symptomatic treatment. She is able to ambulate. Follow-up with her PCP for further workup of her anemia. Lab Data Attestation: I reviewed the patient's lab results. Labs: Laboratory Results - last 24 hr 03/04/24 03/04/24 16:02 16:14 WBC 4.1 L RBC 3.83 L Hgb 8.6 L Hct 28.1 L MCV 73.4 L MCH 22.5 L MCHC 30.6 L RDW Std Deviation 49.1 H RDW Coeff of Blaise 18.5 H Plt Count 311 MPV 10.9 Immature Gran % (Auto) 0.500 Neut % (Auto) 75.7 H Lymph % (Auto) 16.2 L Raleigh % (Auto) 7.4 Eos % (Auto) 0.0 Baso % (Auto) 0.2 Absolute Neuts (auto) 3.1 Absolute Lymphs (auto) 0.66 L Nucleated RBC % 0 Sodium 133 L Potassium 3.9 Chloride 103 Carbon Dioxide 24.0 Anion Gap 6 BUN 12 Creatinine 0.86 Estim Creat Clear Calc 69.65 Est GFR (MDRD) Af Amer 85 Est GFR (MDRD) Non-Af 70 BUN/Creatinine Ratio 13.9 Glucose 105 Calcium 8.6 Urine Color Yellow Urine Clarity Sl. Cloudy Urine pH 6.5 Ur Specific Dorr 1.010 Urine Protein 30 H Urine Glucose (UA) Normal Urine Ketones Negative Urine Occult Blood 25 H Urine Nitrite Negative Urine Bilirubin Negative Urine Urobilinogen Normal Ur Leukocyte Esterase 25 H Urine RBC 5-10 SEEN Urine WBC 5-10 SEEN Ur Squamous Epith Cells 0-5 SEEN Urine Bacteria 1+ Hyaline Casts 0-5 SEEN Urine Mucus 0 SEEN Radiography Diagnostic Testing: Clinical Impression(s) from Imaging Studies Chest X-Ray 03/04/24 16:17 IMPRESSION: No acute cardiopulmonary pathology. Electronically Signed: Mo Gauthier MD at 16:34 EST Reading Location ID and State: [facility] / [place] Tel , Service support , Discharge Plan Triage Chief Complaint: Weakness ED Midlevel Provider: Diego Godoy ED Provider: Cm Blake Dx/Rx/DC Orders Clinical Impression: Influenza A, Anemia Instructions: Anemia, ED Influenza (Adult) Prescriptions: No Action citalopram 20 MG tablet 20 mg PO DAILY rizatriptan [Maxalt-UPPERS EDGE BURNISHER] 10 mg Tablet,Disintegrating 10 mg PO Q2H PRN (Reason: Migraine Headache) Primary Care Provider: Luciano Peoples Referrals: Luciano Peoples MD [Primary Care Provider] - Activity Restrictions/Additional Instructions: You were diagnosed with influenza A today, your vital signs remained stable. In August 2020, your hemoglobin was 12.0. Today it is 8.6. You are not have any dark tarry stools, we are unsure why you are anemic. You need to have this followed up outpatient. Print Language: Kiswahili Disposition Disposition: Home, Self Care Discharge Date/Time: 03/04/24 18:25
[2024-03-04] MEDS: 0.9% Normal Saline (1000mL) 1,000 ML 999 ML IV (16:13)
[2024-03-04 16:16] LABS: Absolute Lymphocyte Count 0.66 X10^3/uL (0.83-4.51); Absolute Neutrophil Count 3.1 X10^3/uL (2.0-7.7); Basophil# 0.01 X10^3/uL; Basophil% 0.2 % (0-1); Hematocrit 28.1 % (37-47); Hemoglobin 8.6 g/dL (12.0-15.0); Lymphocyte # 0.66 X10^3/ul (0.83-4.51); Lymphocyte % 16.2 % (19-41); Mean Corp Hgb Conc 30.6 g/dL (32-36); Mean Corpuscular Hgb 22.5 pg (27.0-32.0); Mean Corpuscular Volume 73.4 fL (81-99); Mean Platelet Vol. 10.9 fl (6.2-12.0); Monocyte% 7.4 % (0-10); NRBC Flagged by Analyzer 0 % (0-5); Neutrophil # 3.08 X10^3/uL (2.7-7.7); Neutrophil % 75.7 % (47-70); Platelet Count 311 K/mm3 (150-450); RBC Distribution Width CV 18.5 % (11.6-14.6); RBC Distribution Width SD 49.1 fl (35.1-43.9); Red Blood Count 3.83 M/mm3 (4.2-5.4); White Blood Count 4.1 K/mm3 (4.4-11.0)
--- NOTE | 2024-03-04 16:17 | RAD_ITS ---
STUDY: X-RAY CHEST REASON FOR EXAM: Female, 63 years old. cough TECHNIQUE: PA and lateral COMPARISON: February 25, 2020 FINDINGS: The lungs are clear and expanded. There is no demonstrated pleural abnormality. Normal size heart. Normal mediastinum and braxton. Normal visualized pulmonary arteries. Normal visualized aortic arch and descending thoracic aorta. Dorsal spine demonstrates minor spondylosis. Normal visualized ribs, clavicles, and shoulders. There is no demonstrated abnormality of the visualized soft tissue structures of the upper abdomen. No significant change since prior study RAD/Chest PA and Lateral IMPRESSION: No acute cardiopulmonary pathology. Electronically Signed: Mo Gauthier MD at 16:34 EST ,
[2024-03-04 16:24] LABS: Mucous, Urine 0 SEEN /hpf (<or=2+)
[2024-03-04 16:24] LABS: Anion Gap 6 (5-15); BUN 12 mg/dL (7-18); BUN/Creat Ratio 13.9 RATIO (10-20); Calcium,Total 8.6 mg/dL (8.5-10.1); Chloride 103 mmol/L (98-107); Creatinine, Serum 0.86 mg/dL (0.55-1.02); EST Glomerular Filtration Rate 70 mL/min (>60); Est Glom Filt Rate - Afr Amer 85 mL/min (>60); Estimated Creatinine Clearance 69.65 ml/min; Glucose 105 mg/dL (74-106); Potassium 3.9 mmol/L (3.5-5.1); Sodium Level 133 mmol/L (136-145)
[2024-03-04 16:56] LABS: Color, Urine Yellow (Yellow); Glucose, Dipstick Normal (Normal); Ketone-Dipstick Negative (Negative); Leukocyte Esterase-Dipstick 25 /ul (Negative); Nitrite-Dipstick Negative (Negative); Occult Blood-Urine 25 /ul (Negative); Protein-Dipstick 30 mg/dl (Negative); Urine Bilirubin Dipstick Negative (Negative); Urine Clarity Sl. Cloudy (Clear); Urine Urobilinogen Normal (Normal); Urine pH 6.5 (5.0 - 8.0)
[2024-03-04 17:00] VITALS: BP 128/61; PULSE 94; RESP 20; TEMP 36.9; O2SAT 93
[2024-03-04 17:40] LABS: Bacteria 1+ /hpf (None Seen); Hyaline Cast 0-5 SEEN /lpf (0-5); Red Blood Cells-Urine 5-10 SEEN /hpf (0-5); Squamous Epithelial Cells - UA 0-5 SEEN /hpf (5-10); White Blood Cells 5-10 SEEN /hpf (0-5)
[2024-03-04 18:13] VITALS: BP 147/73; PULSE 73; RESP 20; TEMP 37; O2SAT 95
== END 2024-03-04 18:25 | disposition home or self-care (01) ==
PROVIDERS: Nurse Practitioner; Emergency Provider Emergency Medicine; PCP Internal Medicine; Visit Provider Emergency Medicine
DX: J10.1 Influenza due to other identified influenza virus with other respiratory manifestations (principal); D64.9 Anemia, unspecified
CPT/HCPCS: 71046; 80048; 81001; 85025; 87631; 96360; 96361; 99283; A4216; J2405